=== PATIENT | female | born 1965 ===

== ENCOUNTER → 2020-02-27 13:49 | Outpatient (REF) | payer OTHER, SELFPAY ==
--- NOTE | 2020-02-27 13:57 | CA_ITS ---
Transthoracic Echocardiogram Patient (Last, First, Middle): Rere Spaulding J Gender: Female Date of : 1965 Age: 54 Procedure Date: 02/27/2020 Procedure Type: Transthoracic Echocardiogram Location: OP Height: 165.1 cm Weight: 72.58 kg BSA: 1.80 m2 Heart Rate: bpm BP: 112 / 80 mmHg Physical Education Professor: Referring MD: Herbert Boyle MD Symptoms: Non rheumatic aortic valve stenosis. Study Quality: Fair ECG Rhythm: Sinus Conclusions: - The left ventricular systolic function is normal. The visually estimated ejection fraction is between 60-65%. - There is severe aortic valve stenosis. - There is mild mitral valve regurgitation. - There is mild tricuspid valve regurgitation. - Mild pulmonary hypertension is present. - There is mild dilatation of the ascending aorta measuring 4.30 cm. Findings Left Ventricle Normal left ventricular cavity size. There is mildly increased left ventricular wall thickness. The left ventricular systolic function is normal. The visually estimated ejection fraction is between 60-65%. There is no evidence of regional wall motion abnormalities. Diastolic function is normal for age. Right Ventricle Normal right ventricular cavity size and systolic function. Atria The left atrium is normal in size. The right atrium is normal in size. Aortic Valve There is moderate calcification of the aortic valve. There is severe aortic valve stenosis. The peak aortic velocity is 4.33 m/s with a calculated peak gradient of 75 mmHg. The mean gradient is 44 mmHg. The aortic valve area is 0.84 cm2. There is mild aortic valve regurgitation. Suspect bicuspid morphology. Mitral Valve There is mild mitral annular calcification. There is mild mitral valve regurgitation. There is no mitral valve stenosis. Pulmonic Valve The pulmonic valve was not well visualized. Tricuspid Valve Normal tricuspid valve structure. There is mild tricuspid valve regurgitation. Mild pulmonary hypertension is present. Great Vessels There is mild dilatation of the ascending aorta measuring 4.30 cm. Venous The inferior vena cava is normal in size and collapses greater than 50% with inspiration. Pericardium/Pleural There is no evidence of pericardial effusion. Prior Study Comparison Changes noted compared to prior study dated: 08/13/2012. Progression of aortic valve stenosis. Per report at that time, bicuspid aortic valve with mild aortic stenosis and [id number] aortic regurgitation. Measurements 2D Linear Measurements RVIDd: 3.11 RVIDd Index: 1.73 IVSd: 1.10 0.6-0.9/0.6-1.0 cm LVIDd: 4.75 3.9-5.3/4.2-5.9 cm LVIDd Index: 2.64 2.4-3.2/2.2-3.1 cm/m2 LVIDs: 3.14 2.0-3.6 cm LVPWd: 1.08 0.7-1.1 cm Ao Root: 3.60 2.1-3.5 cm LA Diam: 3.40 2.7-3.8/3.0-4.0 cm LAIDs Index: 1.89 1.5-2.3 cm/m2 LV Mass: 234.67 67-162/88-224 g LV Mass Index: 130.37 43-95/49-115 g/m2 LVOT Diam: 2.20 3.0+(-)1.3 cm 2D Systolic Function EF 4C: 70.50 >55% EF 2C: 60.10 >55% EF BiP: 66.60 >55% Mitral Valve MV Pk E: 0.73 MV PK A: 0.62 MV Decel Time: 169.00 E/A: 1.20 E'Lateral: 11.60 E'Medial: 6.19 E/E' Med: 11.80 E/E' Lat: 6.30 Aortic Valve AoV Pk Marcos: 4.33 AoV Mn Marcos: 3.12 AoV VTI: 0.98 AoV Pk Grad: 75.00 Aov Mn Grad: 44.00 [place] Cont.VTI: 0.84 AI Pk Marcos: 4.78 AI Cache: 1.85 LVOT LVOT Pk Marcos: 0.94 LVOT Mn Marcos: 0.73 LVOT VTI: 0.22 LVOT Pk Grad: 3.00 LVOT Mn Grad: 2.00 LVOT Diam: 2.20 LVOT Area: 3.80 Diastolic Function MV Pk E: 0.73 MV Pk A: 0.62 E/A: 1.20 E'Medial: 6.19 E/E' Med: 11.80 E' Laterial: 11.60 E/E' Lat: 6.30 Tricuspid Valve TR Pk Marcos: 3.01 TR Pk Grad: 36.00 RA Press: 3.00 RVSP: 39.00 Great Vessels Aorta Ao Root-2D: 3.60 2.0-3.7 cm Ao Asc: 4.30 2.1-3.4 cm Ao Arch: 3.20 Updated in Other Vendor System with Status of Final Henry Gomez MD electronically signed on 02/28/2020 11:21:20 AM with status of Final
== END ==
LOC: HO.CARD 13:49
PROVIDERS: PCP Family Medicine; Visit Provider Family Medicine
DX: I35.0 Nonrheumatic aortic (valve) stenosis (principal); Q23.1 Congenital insufficiency of aortic valve
CPT/HCPCS: 93306

== ENCOUNTER → 2020-03-04 09:07 | Outpatient (BNVA) | payer OTHER, SELFPAY | PROVIDERS: PCP Family Medicine; Referring Provider Family Medicine; Visit Provider Internal Medicine | DX: Q23.1 Congenital insufficiency of aortic valve (principal) | CPT/HCPCS: 93005 ==

== ENCOUNTER 2020-03-04 12:04 | Outpatient (REF) | payer OTHER, SELFPAY ==
[2020-03-04 13:58] LABS: Hematocrit 44.3 % (37-47); Hemoglobin 14.4 g/dl (12.0-16.0); Mean Corpuscular HGB Conc 32.5 g/dl (31.0-35.0); Mean Corpuscular Hemoglobin 31.2 pg (27.0-33.0); Mean Corpuscular Volume 95.9 fL (80-98); Mean Platelet Volume 10.1 fL (9.4-12.3); Platelet Count 238 X10*3/uL (160-400); Red Blood Count 4.62 X10*6/uL (4.20-5.50); Red Cell Distribution Width 13.1 % (11.0-16.0); White Blood Count 7.9 X10*3/uL (4.8-10.8)
[2020-03-04 14:04] LABS: INTERNATIONAL NORM RATIO 0.9 (0.9-1.1); Prothrombin Time 10.8 SEC (10.8-13.0)
[2020-03-04 14:28] LABS: Anion Gap 14 (12-20); Blood Urea Nitrogen 18 mg/dL (9-16); Carbon Dioxide 26 mmol/L (22-29); Chloride 105 mmol/L (96-108); Estimated Glomerular Filt Rate > 60; Glucose Random 92 mg/dL (60-115); Potassium 4.6 mmol/l (3.3-5.1); Sodium 140 mmol/L (135-145)
[2020-03-04 14:45] LABS: Calcium 11.3 mg/dL (8.4-10.2)
== END 2020-03-04 12:05 | disposition home or self-care (01) ==
LOC: HO.HMGCLDS 12:04
PROVIDERS: PCP Family Medicine; Visit Provider Internal Medicine
DX: Q23.1 Congenital insufficiency of aortic valve (principal)
CPT/HCPCS: 36415; 80048; 85027; 85610

== ENCOUNTER → 2020-03-23 14:57 | Outpatient (BNVA) | payer OTHER, SELFPAY | PROVIDERS: PCP Family Medicine; Referring Provider Family Medicine; Visit Provider Internal Medicine | DX: Z76.89 Persons encountering health services in other specified circumstances (principal) ==

== ENCOUNTER → 2020-05-03 15:03 | Outpatient (BNVA) | payer OTHER, SELFPAY | PROVIDERS: PCP Family Medicine; Visit Provider Internal Medicine | DX: Z76.89 Persons encountering health services in other specified circumstances (principal) ==

== ENCOUNTER 2020-07-15 12:17 | Outpatient (REF) | payer OTHER, SELFPAY ==
[2020-07-15 14:02] LABS: MANUAL DIFF FLAG NO
[2020-07-15 14:05] LABS: Basophils Percent Auto 0.3 % (0-2); Eosinophils Absolute Auto 0.1 X10*3/uL (0.0-0.4); Eosinophils Percent Auto 0.8 % (0-4); Hemoglobin 10.5 g/dl (12.0-16.0); Imm Gran Abs Auto 0.03 X10*3/uL (0.00-0.03); Imm Gran Pct Auto 0.4 % (0.0-0.4); Lymphocytes Absolute Auto 1.5 X10*3/uL (1.2-4.9); Lymphocytes Percent Auto 19.1 % (20-40); Mean Corpuscular HGB Conc 30.9 g/dl (31.0-35.0); Mean Corpuscular Hemoglobin 29.1 pg (27.0-33.0); Mean Corpuscular Volume 94.2 fL (80-98); Mean Platelet Volume 9.2 fL (9.4-12.3); Monocytes Absolute Auto 0.4 X10*3/uL (0.1-1.2); Monocytes Percent Auto 4.9 % (2-11); Neutrophils Absolute Auto 5.7 X10*3/uL (2.0-8.3); Neutrophils Percent Auto 74.5 % (45-73); Platelet Count 496 X10*3/uL (160-400); Red Blood Count 3.61 X10*6/uL (4.20-5.50); Red Cell Distribution Width 13.8 % (11.0-16.0); White Blood Count 7.7 X10*3/uL (4.8-10.8)
[2020-07-15 14:29] LABS: Calcium 10.5 mg/dL (8.4-10.2)
== END 2020-07-15 12:18 | disposition home or self-care (01) ==
LOC: HO.HMGCLDS 12:17
PROVIDERS: PCP Family Medicine; Visit Provider Family Medicine
DX: D50.0 Iron deficiency anemia secondary to blood loss (chronic) (principal); E83.52 Hypercalcemia
CPT/HCPCS: 36415; 82310; 85025

== ENCOUNTER → 2020-07-29 15:06 | Outpatient (BNVA) | payer OTHER, SELFPAY | PROVIDERS: PCP Family Medicine; Visit Provider Internal Medicine | DX: Q23.1 Congenital insufficiency of aortic valve (principal); I10 Essential (primary) hypertension; Z95.2 Presence of prosthetic heart valve; Z98.890 Other specified postprocedural states; Z86.79 Personal history of other diseases of the circulatory system | CPT/HCPCS: 93005 ==

== ENCOUNTER 2020-08-05 08:30 | Outpatient (REF) | payer OTHER, SELFPAY ==
[2020-08-05 11:12] LABS: MANUAL DIFF FLAG NO
[2020-08-05 11:37] LABS: Basophils Percent Auto 0.2 % (0-2); Eosinophils Absolute Auto 0.1 X10*3/uL (0.0-0.4); Eosinophils Percent Auto 1.5 % (0-4); Hematocrit 37.8 % (37-47); Hemoglobin 11.8 g/dl (12.0-16.0); Mean Corpuscular HGB Conc 31.2 g/dl (31.0-35.0); Mean Corpuscular Hemoglobin 29.4 pg (27.0-33.0); Mean Corpuscular Volume 94.3 fL (80-98); Mean Platelet Volume 10.5 fL (9.4-12.3); Monocytes Absolute Auto 0.3 X10*3/uL (0.1-1.2); Monocytes Percent Auto 6.1 % (2-11); Neutrophils Percent Auto 74.2 % (45-73); Platelet Count 245 X10*3/uL (160-400); Red Blood Count 4.01 X10*6/uL (4.20-5.50); Red Cell Distribution Width 15.5 % (11.0-16.0); White Blood Count 5.4 X10*3/uL (4.8-10.8)
[2020-08-05 12:03] LABS: Iron 47 mcg/dL (30-160); Percent Iron Saturation 14 % (15-50); Total Iron Binding Capacity 332 mcg/dL (228-428); Unsaturated Iron Binding 285 ug/dL
== END 2020-08-05 08:31 | disposition home or self-care (01) ==
LOC: HO.HMGCLDS 08:30
PROVIDERS: PCP Family Medicine; Visit Provider Family Medicine
DX: D50.9 Iron deficiency anemia, unspecified (principal)
CPT/HCPCS: 36415; 83540; 85025

== ENCOUNTER → 2020-09-20 09:36 | Outpatient (REF) | payer OTHER, SELFPAY ==
--- NOTE | 2020-09-20 09:38 | CA_ITS ---
Transthoracic Echocardiogram Patient (Last, First, Middle): Rere Spaulding J Gender: Female Date of : 1965 Age: 55 Procedure Date: 09/20/2020 Procedure Type: Transthoracic Echocardiogram Location: OP Height: 165.1 cm Weight: 72.58 kg BSA: 1.80 m2 Heart Rate: bpm BP: 110 / 76 mmHg Community Pharmacist: DEO Rawls MD: Henry Gomez MD Demolitionist: Lazaro Caba MD Symptoms: Z95.2 - Presence of prosthetic heart valve Study Quality: Good ECG Rhythm: Sinus Conclusions: - 1. Normal LV systolic function with impaired relaxation filling pattern 2. Normally functioning mechanical aortic prosthetic valve with mean gradient of 11 mm of mercury 3. Measured ascending aorta within normal limits 4. Normal RV systolic pressure 5. No gross pericardial effusion Findings Left Ventricle Normal left ventricular size, thickness, and systolic function. The visually estimated ejection fraction is between 55-60%. There is paradoxical septal motion consistent with post-operative status. Spectral Doppler is indicative of an impaired relaxation filling pattern. E/E prime ratio is between 8 and 15 consistent with indeterminate filling pressures. Right Ventricle Normal right ventricular cavity size and systolic function. Atria Both atria are normal in size. There is no evidence of interatrial shunt. Aortic Valve A mechanical prosthetic aortic valve is present. The prosthetic aortic valve appears to be functioning normally. The mean gradient is 11 mmHg. The mechanical prosthetic valve is well seated with no abnormal rocking motion. Mean gradient is within acceptable limits Mitral Valve Normal mitral valve structure and function. There is trace mitral valve regurgitation. There is no mitral valve stenosis. Pulmonic Valve The pulmonic valve was not well visualized. Tricuspid Valve Normal tricuspid valve structure. There is trace tricuspid valve regurgitation. The right ventricular systolic pressure is normal. The right ventricular systolic pressure is 22 mmHg. Normal right atrial pressure. There is no evidence of pulmonary hypertension. Great Vessels All visible segments of the aorta are normal in size. The pulmonary artery was not well visualized. Venous The inferior vena cava is normal in size and collapses greater than 50% with inspiration. Pericardium/Pleural There is no evidence of pericardial effusion. Prior Study Comparison Changes noted compared to prior study dated: 02/27/2020. Ascending aorta measured on this study to be within normal limits, could be underestimated due to off axis views. Consider other forms of imaging. RV systolic pressure is within normal limits. Mechanical aortic valve is present in place of [place] severe aortic stenosis Measurements 2D Linear Measurements IVSd: 0.98 0.6-0.9/0.6-1.0 cm LVIDd: 4.71 3.9-5.3/4.2-5.9 cm LVIDd Index: 2.62 2.4-3.2/2.2-3.1 cm/m2 LVIDs: 3.47 2.0-3.6 cm LVPWd: 0.97 0.7-1.1 cm LA Diam: 3.30 2.7-3.8/3.0-4.0 cm LAIDs Index: 1.83 1.5-2.3 cm/m2 LV Mass: 198.83 67-162/88-224 g LV Mass Index: 110.46 43-95/49-115 g/m2 LVOT Diam: 2.20 3.0+(-)1.3 cm 2D Systolic Function EF 4C: 57.90 >55% EF 2C: 58.90 >55% EF BiP: 58.70 >55% Mitral Valve MV Pk E: 0.77 MV PK A: 0.85 MV Decel Time: 224.00 E/A: 0.90 E'Lateral: 11.60 E'Medial: 8.92 E/E' Med: 8.60 E/E' Lat: 6.60 PHT: 65.00 MVA PHT: 3.38 Decel [place]: 3.42 Aortic Valve AoV Pk Marcos: 2.26 AoV Mn Marcos: 1.59 AoV VTI: 0.41 AoV Pk Grad: 20.00 Aov Mn Grad: 11.00 [place] Cont.VTI: 1.83 LVOT LVOT Pk Marcos: 0.91 LVOT Mn Marcos: 0.69 LVOT VTI: 0.20 LVOT Pk Grad: 3.00 LVOT Mn Grad: 2.00 LVOT Diam: 2.20 LVOT Area: 3.80 Diastolic Function MV Pk E: 0.77 MV Pk A: 0.85 E/A: 0.90 E'Medial: 8.92 E/E' Med: 8.60 E' Laterial: 11.60 E/E' Lat: 6.60 Tricuspid Valve TR Pk Marcos: 2.18 TR Pk Grad: 19.00 RA Press: 3.00 RVSP: 22.00 Great Vessels Aorta Ao Asc: 3.10 2.1-3.4 cm Ao Arch: 2.90 Updated in Other Vendor System with Status of Final Lazaro Caba MD electronically signed on 09/20/2020 12:23:16 PM with status of Final
== END ==
LOC: HO.CARD 09:36
PROVIDERS: PCP Family Medicine; Visit Provider Internal Medicine
DX: Z95.2 Presence of prosthetic heart valve (principal)
CPT/HCPCS: 93306

== ENCOUNTER → 2020-09-30 14:16 | Outpatient (BNVA) | payer OTHER, SELFPAY | PROVIDERS: PCP Family Medicine; Referring Provider Family Medicine; Visit Provider Internal Medicine ==

== ENCOUNTER 2020-10-08 07:36 | Outpatient (REF) | payer OTHER, SELFPAY ==
[2020-10-08 12:08] LABS: MANUAL DIFF FLAG NO
[2020-10-08 12:21] LABS: Basophils Percent Auto 0.2 % (0-2); Eosinophils Absolute Auto 0.1 X10*3/uL (0.0-0.4); Eosinophils Percent Auto 2.1 % (0-4); Hematocrit 42.4 % (37-47); Hemoglobin 13.2 g/dl (12.0-16.0); Lymphocytes Absolute Auto 1.4 X10*3/uL (1.2-4.9); Lymphocytes Percent Auto 28.8 % (20-40); Mean Corpuscular HGB Conc 31.1 g/dl (31.0-35.0); Mean Corpuscular Hemoglobin 28.3 pg (27.0-33.0); Mean Corpuscular Volume 90.8 fL (80-98); Mean Platelet Volume 10.1 fL (9.4-12.3); Monocytes Absolute Auto 0.4 X10*3/uL (0.1-1.2); Monocytes Percent Auto 7.6 % (2-11); Neutrophils Absolute Auto 2.9 X10*3/uL (2.0-8.3); Neutrophils Percent Auto 61.3 % (45-73); Platelet Count 216 X10*3/uL (160-400); Red Blood Count 4.67 X10*6/uL (4.20-5.50); Red Cell Distribution Width 15.3 % (11.0-16.0); White Blood Count 4.8 X10*3/uL (4.8-10.8)
[2020-10-08 13:47] LABS: Alanine Aminotransferase 13 U/L (0-31); Albumin Level 4.2 g/dL (3.5-5.0); Alkaline Phosphatase 99 U/L (39-117); Anion Gap 12 (12-20); Aspartate Amino Transferase 16 U/L (5-31); Bilirubin Total 0.4 mg/dL (0.0-1.0); Blood Urea Nitrogen 21 mg/dL (9-16); Carbon Dioxide 26 mmol/L (22-29); Chloride 108 mmol/L (96-108); Estimated Glomerular Filt Rate > 60; Glucose Random 66 mg/dL (60-115); Potassium 4.2 mmol/L (3.3-5.1); Sodium 142 mmol/L (135-145); Total Protein 6.9 g/dL (6.5-8.0)
[2020-10-08 13:48] LABS: Calcium 10.8 mg/dL (8.4-10.2)
== END 2020-10-08 07:37 | disposition home or self-care (01) ==
LOC: HO.HMGCLDS 07:36
PROVIDERS: PCP Family Medicine; Visit Provider Family Medicine
DX: R42 Dizziness and giddiness (principal); D50.9 Iron deficiency anemia, unspecified; E83.52 Hypercalcemia
CPT/HCPCS: 36415; 80053; 85025

== ENCOUNTER → 2021-02-23 13:52 | Outpatient (BNVA) | payer OTHER, SELFPAY | PROVIDERS: PCP Family Medicine; Visit Provider Internal Medicine | DX: I10 Essential (primary) hypertension (principal); R00.2 Palpitations; Q23.1 Congenital insufficiency of aortic valve; Z95.2 Presence of prosthetic heart valve; Z98.890 Other specified postprocedural states; Z86.79 Personal history of other diseases of the circulatory system | CPT/HCPCS: 93005 ==

== ENCOUNTER 2021-05-04 10:53 | Outpatient (REF) | payer OTHER, SELFPAY ==
[2021-05-04 15:31] LABS: Phosphorus 2.3 mg/dL (2.7-4.5)
[2021-05-05 13:07] LABS: PTHI 116 pg/mL (14-64)
[2021-05-05 14:27] LABS: Calcium, Ionized 5.3 mg/dL (4.8-5.6)
== END 2021-05-04 10:54 | disposition home or self-care (01) ==
LOC: HO.HMGCLDS 10:53
PROVIDERS: PCP Family Medicine; Visit Provider Family Medicine
DX: E83.52 Hypercalcemia (principal)
CPT/HCPCS: 36415; 82330; 83970; 84100

== ENCOUNTER → 2021-08-03 07:30 | Outpatient (REF) | payer OTHER, SELFPAY ==
--- NOTE | 2021-08-03 07:47 | CA_ITS ---
Transthoracic Echocardiogram Patient (Last, First, Middle): Rere Spaulding J Gender: Female Date of : 1965 Age: 56 Procedure Date: 08/03/2021 Procedure Type: Transthoracic Echocardiogram Location: OP Height: 165.1 cm Weight: 72.58 kg BSA: 1.80 m2 Heart Rate: bpm BP: 137 / 77 mmHg Baker Chef: YR/TO Referring MD: Henry Gomez MD Symptoms: Z95.2 - Presence of prosthetic heart valve Study Quality: Good ECG Rhythm: Sinus Conclusions: - The left ventricular systolic function is normal. The visually estimated ejection fraction is between 55-60%. - A mechanical prosthetic aortic valve is present. The prosthetic aortic valve appears to be functioning normally. Findings Left Ventricle Normal left ventricular cavity size. There is mildly increased left ventricular wall thickness. The left ventricular systolic function is normal. The visually estimated ejection fraction is between 55-60%. There is no evidence of regional wall motion abnormalities. Diastolic function is normal for age. Right Ventricle Normal right ventricular cavity size and systolic function. Atria Both atria are normal in size. Aortic Valve A mechanical prosthetic aortic valve is present. The prosthetic aortic valve appears to be functioning normally. The mean gradient is 14 mmHg. The aortic valve area is 1.71 cm2. Acceleration time 74 milliseconds. Trace para valvular regurgitation. Mitral Valve The mitral valve appears normal. There is trace mitral valve regurgitation. There is no mitral valve stenosis. Pulmonic Valve The pulmonic valve was not well visualized. Tricuspid Valve Normal tricuspid valve structure. There is mild tricuspid valve regurgitation. The pulmonary artery systolic pressure is normal. Great Vessels The asc aorta is normal in size. Venous The inferior vena cava is normal in size and collapses greater than 50% with inspiration. Pericardium/Pleural There is no evidence of pericardial effusion. Prior Study Comparison No significant change compared to prior study dated: 09/20/2020. Measurements 2D Linear Measurements IVSd: 1.10 0.6-0.9/0.6-1.0 cm LVIDd: 4.18 3.9-5.3/4.2-5.9 cm LVIDd Index: 2.32 2.4-3.2/2.2-3.1 cm/m2 LVIDs: 2.55 2.0-3.6 cm LVPWd: 1.04 0.7-1.1 cm LA Diam: 3.70 2.7-3.8/3.0-4.0 cm LAIDs Index: 2.06 1.5-2.3 cm/m2 LV Mass: 186.58 67-162/88-224 g LV Mass Index: 103.65 43-95/49-115 g/m2 LVOT Diam: 2.20 3.0+(-)1.3 cm 2D Systolic Function EF 4C: 55.30 >55% EF 2C: 53.70 >55% EF BiP: 54.10 >55% Mitral Valve MV Pk E: 0.74 MV PK A: 0.78 MV Decel Time: 226.00 E/A: 0.90 E'Lateral: 11.10 E'Medial: 5.77 E/E' Med: 12.80 E/E' Lat: 6.60 PHT: 66.00 MVA PHT: 3.33 Decel [place]: 3.26 Aortic Valve AoV Pk Marcos: 2.58 AoV Mn Marcos: 1.80 AoV VTI: 0.52 AoV Pk Grad: 27.00 Aov Mn Grad: 14.00 [place] Cont.VTI: 1.71 LVOT LVOT Pk Marcos: 1.04 LVOT Mn Marcos: 0.74 LVOT VTI: 0.24 LVOT Pk Grad: 4.00 LVOT Mn Grad: 2.00 LVOT Diam: 2.20 LVOT Area: 3.80 Diastolic Function MV Pk E: 0.74 MV Pk A: 0.78 E/A: 0.90 E'Medial: 5.77 E/E' Med: 12.80 E' Laterial: 11.10 E/E' Lat: 6.60 Right Ventricle TAPSE (mm): 17.30 TVS' Marcos: 7.40 Tricuspid Valve TR Pk Marcos: 2.21 TR Pk Grad: 20.00 RA Press: 3.00 RVSP: 23.00 Great Vessels Aorta Sinus of Valsalva: 3.37 2.0-3.5 cm Ao Asc: 3.10 2.1-3.4 cm Ao Arch: 3.10 Updated in Other Vendor System with Status of Final Henry Gomez MD electronically signed on 08/05/2021 2:43:55 PM with status of Final
== END ==
LOC: HO.CARD 07:30
PROVIDERS: PCP Family Medicine; Visit Provider Internal Medicine
DX: Z95.2 Presence of prosthetic heart valve (principal)
CPT/HCPCS: 93306

== ENCOUNTER 2022-08-25 09:05 | Outpatient (REF) | payer OTHER, SELFPAY ==
[2022-08-25 11:33] LABS: MANUAL DIFF FLAG NO
[2022-08-25 11:56] LABS: Eosinophils Absolute Auto 0.1 X10*3/uL (0.0-0.4); Eosinophils Percent Auto 2.3 % (0-4); Hematocrit 41.9 % (37.0-47.0); Hemoglobin 13.4 g/dl (12.0-16.0); Imm Gran Abs Auto 0.01 X10*3/uL (0.00-0.03); Imm Gran Pct Auto 0.2 % (0.0-0.4); Lymphocytes Percent Auto 23.3 % (20-40); Mean Corpuscular Hemoglobin 29.5 pg (27.0-33.0); Mean Corpuscular Volume 92.3 fL (80.0-98.0); Mean Platelet Volume 10.5 fL (9.4-12.3); Monocytes Absolute Auto 0.3 X10*3/uL (0.1-1.2); Monocytes Percent Auto 5.7 % (2-11); Neutrophils Percent Auto 68.5 % (45-73); Platelet Count 205 X10*3/uL (160-400); Red Blood Count 4.54 X10*6/uL (4.20-5.50); Red Cell Distribution Width 14.9 % (11.0-16.0); White Blood Count 4.4 X10*3/uL (4.8-10.8)
[2022-08-25 12:36] LABS: Anion Gap 10 (12-20); Blood Urea Nitrogen 15 mg/dL (9-16); Calcium 10.4 mg/dL (8.4-10.2); Carbon Dioxide 26 mmol/L (22-29); Chloride 110 mmol/L (96-108); Estimated Glomerular Filt Rate > 60; Sodium 142 mmol/L (135-145)
[2022-08-28 15:29] LABS: Calcium (PTHI) 10.5 mg/dL (8.6-10.4); PTHI 91 pg/mL (16-77)
== END 2022-08-25 09:06 | disposition home or self-care (01) ==
LOC: HO.HMGCLDS 09:05
PROVIDERS: PCP Family Medicine; Visit Provider Family Medicine
DX: I10 Essential (primary) hypertension (principal); K21.9 Gastro-esophageal reflux disease without esophagitis; E83.52 Hypercalcemia
CPT/HCPCS: 36415; 80051; 82310; 82565; 83970; 84520; 85025

== ENCOUNTER → 2022-10-12 07:54 | Outpatient (REF) | payer OTHER, SELFPAY ==
--- NOTE | 2022-10-12 07:57 | CA_ITS ---
Transthoracic Echocardiogram Patient (Last, First, Middle): Rere Spaulding J Gender: Female Date of : 1965 Age: 57 Procedure Date: 10/12/2022 Procedure Type: Transthoracic Echocardiogram Location: OP Height: 165.1 cm Weight: 73.94 kg BSA: 1.81 m2 Heart Rate: bpm BP: 130 / 85 mmHg Agriculture Science Teacher: CHELLE Rawls MD: Henry Gomez MD Carpenter'S Assistant: Lazaro Caba MD Symptoms: Z95.2 - Presence of prosthetic heart valve Study Quality: Adequate ECG Rhythm: Sinus Conclusions: - 1. Normal LV systolic function 2. Mildly dilated left atrium 3. Normally functioning mechanical aortic prosthetic valve with mean gradient of 14 mmHg 4. Normal RV systolic pressure 5. No pericardial effusion Findings Left Ventricle Normal left ventricular size, thickness, and systolic function. The visually estimated ejection fraction is between 55-60%. Spectral Doppler is indicative of a normal filling pattern. Right Ventricle Normal right ventricular cavity size and systolic function. Atria The left atrium is mildly dilated. There is lipomatous hypertrophy of the interatrial septum. Interatrial shunt cannot be excluded. The right atrium is normal in size. Aortic Valve A mechanical prosthetic aortic valve is present. The prosthetic aortic valve appears to be functioning normally. The mean gradient is 14 mmHg. There is trace (trivial) aortic valve regurgitation. Mitral Valve There is mild anterior and posterior mitral leaflet thickening. There is mild mitral valve regurgitation. There is no mitral valve stenosis. Pulmonic Valve The pulmonic valve was not well visualized. Tricuspid Valve Normal tricuspid valve structure. There is trace tricuspid valve regurgitation. The right ventricular systolic pressure is normal. The right ventricular systolic pressure is 30 mmHg. Normal right atrial pressure. There is no evidence of pulmonary hypertension. Great Vessels All visible segments of the aorta are normal in size. The pulmonary artery was not well visualized. Venous The inferior vena cava is normal in size and collapses greater than 50% with inspiration. Pericardium/Pleural There is no evidence of pericardial effusion. Prior Study Comparison No significant change compared to prior study dated: 08/03/2021. Measurements 2D Linear Measurements IVSd: 1.10 0.6-0.9/0.6-1.0 cm LVIDd: 4.01 3.9-5.3/4.2-5.9 cm LVIDd Index: 2.22 2.4-3.2/2.2-3.1 cm/m2 LVIDs: 2.12 2.0-3.6 cm LVPWd: 1.07 0.7-1.1 cm LA Diam: 2.80 2.7-3.8/3.0-4.0 cm LAIDs Index: 1.55 1.5-2.3 cm/m2 LV Mass: 178.41 67-162/88-224 g LV Mass Index: 98.57 43-95/49-115 g/m2 LVOT Diam: 2.20 3.0+(-)1.3 cm 2D Systolic Function EF 4C: 64.10 >55% EF 2C: 52.80 >55% Mitral Valve MV Pk E: 0.97 MV PK A: 0.67 MV Decel Time: 186.00 E/A: 1.40 E'Lateral: 8.06 E'Medial: 5.78 E/E' Med: 16.70 E/E' Lat: 12.00 PHT: 54.00 MVA PHT: 4.07 Decel [place]: 5.22 Aortic Valve AoV Pk Marcos: 2.53 AoV Mn Marcos: 1.73 AoV VTI: 0.57 AoV Pk Grad: 26.00 Aov Mn Grad: 14.00 [place] Cont.VTI: 2.20 LVOT LVOT Pk Marcos: 1.39 LVOT Mn Marcos: 0.96 LVOT VTI: 0.33 LVOT Pk Grad: 8.00 LVOT Mn Grad: 4.00 LVOT Diam: 2.20 LVOT Area: 3.80 Diastolic Function MV Pk E: 0.97 MV Pk A: 0.67 E/A: 1.40 E'Medial: 5.78 E/E' Med: 16.70 E' Laterial: 8.06 E/E' Lat: 12.00 Right Ventricle TAPSE (mm): 18.20 TVS' Marcos: 9.02 Tricuspid Valve TR Pk Marcos: 2.58 TR Pk Grad: 27.00 RA Press: 3.00 RVSP: 30.00 Great Vessels Aorta Sinus of Valsalva: 3.40 2.0-3.5 cm Ao Asc: 3.10 2.1-3.4 cm Pulmonary Valve PV Pk Marcos: 0.86 Peak PV Grad: 3.00 Updated in Other Vendor System with Status of Final Lazaro Caba MD electronically signed on 10/12/2022 2:35:23 PM with status of Final
== END ==
LOC: HO.CARD 07:54
PROVIDERS: PCP Family Medicine; Visit Provider Internal Medicine
DX: Z95.2 Presence of prosthetic heart valve (principal)
CPT/HCPCS: 93306

== ENCOUNTER 2023-04-17 10:02 | Outpatient (AMB) | payer OTHER, SELFPAY ==
--- NOTE | 2023-04-17 10:06 | MHC.OFFVIS ---
Intake Vital Signs 04/17/23 10:07 Height 5 ft 5 in Weight 173 lb 11.588 oz BMI 28.9 BP 132/80 Blood Pressure Location Lt brachial Position Sitting Pulse 62 Intake Visit Reasons: 6 month follow up Intake Note: 6 month follow up w/ EKG Marine Oiler Required: No Accompanied by: Self / Same As Patient Allergies No Known Allergies Allergy (Verified 04/17/23 10:09) Medication List - Last Reconciled 04/17/23 by Henry Gomez MD aspirin 81 mg PO DAILY cholecalciferol (vitamin D3) 25 mcg PO DAILY metoprolol tartrate 25 mg PO BID multivitamin 1 tab PO DAILY warfarin 7.5 mg PO DAILY HPI HPI Comments History of Present Illness Details Rere returns for follow-up. She underwent mechanical aortic valve replacement as well as aortic aneurysm repair. History of bicuspid valve. Overall, she is doing good. No clear cardiac symptoms. [facility] Medical History (Updated 02/23/21 @ 14:30 by Henry Gomez MD) Essential hypertension Nonrheumatic aortic (valve) stenosis Bicuspid aortic valve Surgical History History of aortic valve replacement (~06/30/20) History of aortic aneurysm repair (~06/30/20) History of D&C History of left breast biopsy Family History Father Cardiovascular disease Stroke History of coronary artery bypass graft Mother Cardiovascular disease Heart valve replaced Social History Patient Tobacco Use Status: Never used Tobacco Review of Systems Const Denies weakness ENT Denies dizziness Card Denies chest pain, Denies chest pain with activity, Denies syncope, Denies rapid heart rate, Denies pedal edema, Denies edema, Denies leg edema, Denies lightheadedness, Denies dyspnea, Denies dyspnea on exertion and Denies orthopnea Resp Denies cough, Denies dyspnea and Denies dyspnea on exertion GI Denies hematochezia and Denies change in stool character Musc Denies abnormal gait, Denies muscle cramps, Denies muscle weakness, Denies numbness, Denies radiating pain into limb and Denies tingling Neuro Denies abnormal gait, Denies dizziness, Denies syncope, Denies numbness, Denies tingling and Denies weakness Physical Exam Vital Signs: Last Vital Signs Pulse 62 04/17/23 10:07 BP 132/80 04/17/23 10:07 BMI result Body Mass Index 28.9 Const General: cooperative, comfortable and no acute distress Orientation/consciousness: patient oriented x3 HEENT Other: Unremarkable Neck Neck: Yes normal visual inspection Chest Chest palpation & inspection: normal inspection of the chest Resp Auscultation: clear to auscultation bilaterally and no crackles Cardio Jugular venous distension: no JVD Palpation: normal PMI Heart sounds: no gallops, no murmurs, no rubs and Other heart sounds present (Normal prosthetic heart sounds) GI Palpation (GI): Soft to palpation Back/Spine/Pelvis Other: unremarkable Skin General skin exam: no rashes or lesions noted Neuro General: patient oriented x3 Extrem General: Yes no clubbing, cyanosis or edema Psych Mental Status: mental status grossly normal Office Procedures EKG Details: EKG shows sinus rhythm at 62/Min; no significant ST-T changes and otherwise unremarkable[place] [id number], Complete Assessment & Plan Assessment & Plan (1) Status post mechanical aortic valve replacement: Code(s): Z95.2 - Presence of prosthetic heart valve Plan: Continue Aspirin and Coumadin. Target INR 1.5-2. Infective endocarditis prophylaxis per protocol. Last echocardiogram with normal prosthetic valve function. (2) Status post ascending aortic aneurysm repair: Code(s): Z98.890 - Other specified postprocedural states; Z86.79 - Personal history of other diseases of the circulatory system Plan: Stable on [facility] CTs. (3) Essential hypertension: Code(s): I10 - Essential (primary) hypertension Plan: Stable. No changes. Plan Total time spent including review of data, counseling documentation-32 minutes. Coding Level of Care Code Est Pt Level 4 (78836) Diagnoses Status post mechanical aortic valve replacement Z95.2 Status post ascending aortic aneurysm repair Z98.890; Z86.79 Essential hypertension I10 CPT Codes EKG - CPT: 77682-[id number], Complete ([id number])
[2023-04-17 10:07] VITALS: BP 132/80; PULSE 62; BMI 28.9
== END 2023-04-17 10:25 | disposition home or self-care (01) ==
PROVIDERS: PCP Family Medicine; Visit Provider Internal Medicine
DX: Z95.2 Presence of prosthetic heart valve (principal); Z98.890 Other specified postprocedural states; Z86.79 Personal history of other diseases of the circulatory system; I10 Essential (primary) hypertension
CPT/HCPCS: 93010; 99214

== ENCOUNTER → 2023-04-17 10:02 | Outpatient (BNVA) | payer OTHER, SELFPAY | PROVIDERS: PCP Family Medicine; Visit Provider Internal Medicine | DX: Z95.2 Presence of prosthetic heart valve (principal); I10 Essential (primary) hypertension; Z86.79 Personal history of other diseases of the circulatory system; Z79.01 Long term (current) use of anticoagulants; Z79.82 Long term (current) use of aspirin; Z98.890 Other specified postprocedural states | CPT/HCPCS: 93005 ==

== ENCOUNTER 2023-04-20 08:24 | Outpatient (REF) | payer OTHER, SELFPAY ==
[2023-04-20 11:49] LABS: Anion Gap 14 (12-20); Blood Urea Nitrogen 15 mg/dL (9-16); Calcium 10.8 mg/dL (8.4-10.2); Carbon Dioxide 25 mmol/L (22-29); Chloride 110 mmol/L (96-108); Cholesterol 280 mg/dL (<200); Estimated Glomerular Filt Rate > 60; Glucose Fasting 93 mg/dL (60-99); HDL Cholesterol 64 mg/dL (>40); LDL Cholesterol Calculated 186 mg/dL (<100); Potassium 4.5 mmol/L (3.3-5.1); Sodium 144 mmol/L (135-145); Triglycerides 150 mg/dL (<150)
== END 2023-04-20 08:25 | disposition home or self-care (01) ==
LOC: HO.HMGCLDS 08:24
PROVIDERS: PCP Family Medicine; Visit Provider Family Medicine
DX: Z00.00 Encounter for general adult medical examination without abnormal findings (principal); E78.00 Pure hypercholesterolemia, unspecified
CPT/HCPCS: 36415; 80048; 80061

== ENCOUNTER 2023-09-11 08:49 | Outpatient (REF) | payer OTHER, SELFPAY ==
[2023-09-11 10:50] LABS: Alanine Aminotransferase 15 U/L (0-31); Albumin Level 4.1 g/dL (3.5-5.0); Alkaline Phosphatase 100 U/L (39-117); Anion Gap 11 (12-20); Aspartate Amino Transferase 17 U/L (5-31); Bilirubin Total 0.3 mg/dL (0.0-1.0); Blood Urea Nitrogen 10 mg/dL (9-16); Calcium 10.7 mg/dL (8.4-10.2); Carbon Dioxide 22 mmol/L (22-29); Chloride 112 mmol/L (96-108); Cholesterol 242 mg/dL (<200); Estimated Glomerular Filt Rate > 60; Glucose Fasting 93 mg/dL (60-99); HDL Cholesterol 54 mg/dL (>40); LDL Cholesterol Calculated 169 mg/dL (<100); Potassium 4.2 mmol/L (3.3-5.1); Sodium 141 mmol/L (135-145); Triglycerides 98 mg/dL (<150)
[2023-09-11 11:04] LABS: Basophils Percent Auto 0.3 % (0-2); Eosinophils Absolute Auto 0.1 X10*3/uL (0.0-0.4); Hematocrit 38.9 % (37.0-47.0); Hemoglobin 12.9 g/dl (12.0-16.0); Imm Gran Abs Auto 0.01 X10*3/uL (0.00-0.03); Imm Gran Pct Auto 0.3 % (0.0-0.4); Lymphocytes Absolute Auto 0.9 X10*3/uL (1.2-4.9); Lymphocytes Percent Auto 23.4 % (20-40); MANUAL DIFF FLAG SCAN; Mean Corpuscular HGB Conc 33.2 g/dl (31.0-35.0); Mean Corpuscular Hemoglobin 30.6 pg (27.0-33.0); Mean Corpuscular Volume 92.4 fL (80.0-98.0); Monocytes Absolute Auto 0.2 X10*3/uL (0.1-1.2); Monocytes Percent Auto 5.3 % (2-11); Neutrophils Absolute Auto 2.7 x10*3/uL (2.0-8.3); Neutrophils Percent Auto 68.7 % (45-73); PLT CLUMP 1; Red Blood Count 4.21 X10*6/uL (4.20-5.50); Red Cell Distribution Width 14.6 % (11.0-16.0); SCAN SMEAR FLAG 1
[2023-09-11 11:15] LABS: Mean Platelet Volume 10.5 fL (9.4-12.3); Platelet Count 179 X10*3/uL (160-400)
[2023-09-11 11:17] LABS: SLIDE REVIEW VERIFIED; White Blood Count 3.9 X10*3/uL (4.8-10.8)
== END 2023-09-11 08:50 | disposition home or self-care (01) ==
LOC: HO.HMGCLDS 08:49
PROVIDERS: PCP Family Medicine; Visit Provider Family Medicine
DX: E83.52 Hypercalcemia (principal); E78.00 Pure hypercholesterolemia, unspecified; R73.9 Hyperglycemia, unspecified; R53.83 Other fatigue
CPT/HCPCS: 36415; 80053; 80061; 85025

== ENCOUNTER 2023-12-18 10:52 | Outpatient (REF) | payer OTHER, SELFPAY ==
[2023-12-18 13:41] LABS: Calcium 10.8 mg/dL (8.4-10.2)
[2023-12-18 14:41] LABS: Parathyroid Hormone Intact 108.5 pg/mL (8.7-77.1)
== END 2023-12-18 10:53 | disposition home or self-care (01) ==
LOC: HO.HMGCLDS 10:52
PROVIDERS: PCP Family Medicine; Visit Provider Family Medicine
DX: E87.5 Hyperkalemia (principal)
CPT/HCPCS: 36415; 82310; 83970

== ENCOUNTER 2024-04-17 14:26 | Outpatient (AMB) | payer OTHER, SELFPAY ==
--- OUTSIDE RECORDS SUMMARY | 2024-04-17 14:29 | XMS_ITS | Continuity of Care Document ---
Author Organization [facility] Address [address] [place] [address] Phone [phone] Social History Type Date Description Comments Sex Unknown Medications Active Medications SIG Qnty Indications Ordering Provider Date Bupropion Hydrochloride ER (SR)150mg Tablets ER 12HR Herbert Boyle M.D. Jantoven2.5mg Tablets Juana Boyle M.D. Sertraline IQY62di Tablets Herbert Ramos M.D. Metoprolol [id number] Tablets Unknown [id number] Capsules Herbert Boyle M.D. Results Test Acquired Date Facility Test Result H/L [place] Laboratory test finding 01/30/2022 [facility] Albumin 4.7 GM/DL (3.4-4.8) Basic Metabolic Panel 01/30/2022 [facility] Glucose 97 mg/dL (70-99) 1 BUN 17 mg/dL (6-20) Creatinine 0.6 mg/dL (0.5-1.0) Sodium 142 mmol/L (133-145) Potassium 4.9 mmol/L (3.6-5.2) Chloride 105 mmol/L (98-107) Bicarbonate 27 mmol/L (22-29) Anion Gap 10 (4-17) Calcium 11.3 mg/dL High (8.6-10.5 ) Estimated GFR Creatinine 105 ML/MIN/1.7 3M2 2 Laboratory test finding 01/30/2022 [facility] Phosphorus 3.4 mg/dL (2.5-4.5) 25Oh Vitamin D 27.5 NG/ML (20-50 ) PTH, Intact 65 pg/mL (15-65) 1 Fasting 2 Creatinine based est imated glomerular filtration (eGFR) in adults is calculated using the [employer] recommended 2020 CKD-EPI equation. Estimates GFR from serum creatinine, age and sex. Procedures Date Code Description Status 01/29/2024 NSHOWOFF No Show Office Visit Complet ed Medical Devices Description No Information Available Encounters Description No Information Available Assessments Date Code Description Provider 09/30/2021 E21.0 Primary hyperparathyroidism Cortez Clement M.D. 08/26/2021 E21.0 Primary hyperparathyroidism Cortez Clement M.D. Plan of Treatment No Information Available Functional Status Description No Information Available Mental Status Description No Information Available Referrals Description No Information Available
[2024-04-17 15:14] VITALS: BP 138/70; PULSE 60; BMI 29.6
--- NOTE | 2024-04-17 15:14 | MHC.OFFVIS ---
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 Today she reports that she has been doing well since her last visit here 04/17/2023. She has no concerning symptoms. She denies chest discomfort at rest or with activity. No shortness of breath, PND, orthopnea or edema. No palpitations, lightheadedness, presyncope, syncope. She has been doing well with her aspirin and Coumadin. She does report easy bruising. She does her own INR checks at home. She recently had a CT scan of the chest and is asking about results. [facility] Medical History Essential hypertension Nonrheumatic aortic (valve) stenosis Bicuspid aortic valve Surgical History History of aortic valve replacement (~06/30/20) History of aortic aneurysm repair (~06/30/20) History of D&C History of left breast biopsy Family History Father Cardiovascular disease Stroke History of coronary artery bypass graft Mother Cardiovascular disease Heart valve replaced Social History Patient Tobacco Use Status: Never used Tobacco Review of Systems Const All systems reviewed & are unremarkable except as noted in HPI and below ENT Denies dizziness Card Denies chest pain, Denies chest pain at rest, Denies chest pain with activity, Denies rapid heart rate, Denies pedal edema, Denies edema, Denies leg edema, Denies lightheadedness, Denies palpitations, Denies dyspnea, Denies dyspnea on exertion and Denies orthopnea Resp Denies cough, Denies dyspnea and Denies dyspnea on exertion GI Denies hematochezia and Denies change in stool character Musc Denies abnormal gait, Denies limited range of motion, Denies muscle cramps, Denies muscle weakness, Denies numbness, Denies radiating pain into limb, Denies stiffness and Denies tingling Neuro Denies abnormal gait, Denies dizziness, Denies numbness and Denies tingling Endo Denies palpitations Physical Exam Vital Signs: Last Vital Signs Pulse 60 04/17/24 15:14 BP 138/70 04/17/24 15:14 BMI result Body Mass Index 29.6 Const General: cooperative, healthy appearing, comfortable and no acute distress Orientation/consciousness: patient oriented x3 HEENT Head: Yes normal to inspection Chest Chest palpation & inspection: normal inspection of the chest Resp Effort & Inspection: normal respiratory effort Auscultation: clear to auscultation bilaterally, no crackles, no rales, no rhonchi and no wheezes Cardio Jugular venous distension: no JVD Rate: regular rate Rhythm: regular rhythm Heart sounds: S2 normal heart sound present, Clicking heart sound present (crisp click from mechanical aortic valve) and no rubs Peripheral pulses: Peripheral pulses 2+ throughout Neuro General: patient oriented x3 Extrem General: Yes normal to inspection, No no pedal edema and No calf tenderness Psych Appearance: grossly normal Mental Status: mental status grossly normal Speech and movement: Normal speech and movement present Office Procedures EKG Details: Today, read by me, normal sinus rhythm, rate 60, QTC 370 milliseconds [id number], Complete Assessment & Plan Assessment & Plan (1) Bicuspid aortic valve: Code(s): Q23.1 - Congenital insufficiency of aortic valve Category: Medical Plan: History of bicuspid aortic valve which develop severe stenosis and ascending aortic aneurysm. She underwent surgical repair with mechanical aortic valve and ascending aortic aneurysm repair 06/30/2020 at [facility]. She has been doing well since that time. Last echocardiogram done 10/12/2022 shows EF 55-60%, normally function mechanical aortic valve with mean gradient 14 mmHg, ascending aorta 3.1 cm, sinus of Valsalva 3.4 cm. She had a CT scan of the chest at [facility] on 03/05/2024 which showed aorta measurements without significant change from 12/27/2022, aortic root 3.5 cm, mid ascending aorta 3.6 cm. She is on aspirin and Coumadin, INR goal 2-3. She does her own INR checks at home. No bleeding issues reported. Endocarditis prophylaxis prior to dental work reviewed. Will update echocardiogram and plan to call her with the results. Cardiology office visit 1 year, sooner if needed. (2) Status post ascending aortic aneurysm repair: Code(s): Z98.890 - Other specified postprocedural states; Z86.79 - Personal history of other diseases of the circulatory system Category: Medical Plan: As above (3) Status post mechanical aortic valve replacement: Code(s): Z95.2 - Presence of prosthetic heart valve Category: Medical Plan: As above (4) Essential hypertension: Code(s): I10 - Essential (primary) hypertension Category: Medical Plan: Adequately controlled. Continue metoprolol. Plan Time spent on chart review, documentation, interview and assessment Orders: Orders CA echo transthoracic complete 04/17/24 Z86.79 - Personal history of other diseases of the circulatory system, Z95.2 - Presence of prosthetic heart valve, Z98.890 - Other specified postprocedural states Coding Level of Care Code Est Pt Level 4 (14808) Complex EM visit Add On G2211 Diagnoses Bicuspid aortic valve Q23.1 Status post ascending aortic aneurysm repair Z98.890; Z86.79 Status post mechanical aortic valve replacement Z95.2 Essential hypertension I10 CPT Codes EKG - CPT: 07338-[id number], Complete ([id number]) Time Spent (min) 30
== END 2024-04-17 15:55 | disposition home or self-care (01) ==
PROVIDERS: PCP Family Medicine; Visit Provider Nurse Practitioner Family
DX: I10 Essential (primary) hypertension (principal); Q23.1 Congenital insufficiency of aortic valve; Z95.2 Presence of prosthetic heart valve
CPT/HCPCS: 93010; 99214

== ENCOUNTER → 2024-04-17 14:26 | Outpatient (BNVA) | payer OTHER, SELFPAY | PROVIDERS: PCP Family Medicine; Visit Provider Nurse Practitioner Family | DX: I10 Essential (primary) hypertension (principal); I35.0 Nonrheumatic aortic (valve) stenosis; Q23.81 Bicuspid aortic valve; Z95.2 Presence of prosthetic heart valve; Z86.79 Personal history of other diseases of the circulatory system; Z98.890 Other specified postprocedural states | CPT/HCPCS: 93005 ==

== ENCOUNTER → 2024-04-18 12:49 | Outpatient (REF) | payer OTHER, SELFPAY ==
--- OUTSIDE RECORDS SUMMARY | 2024-04-18 12:52 | XMS_ITS | Continuity of Care Document ---
Author Organization [facility] Address [address] [place] [address] Phone [phone] Social History Type Date Description Comments Sex Unknown Medications Active Medications SIG Qnty Indications Ordering Provider Date Bupropion Hydrochloride ER (SR)150mg Tablets ER 12HR Herbert Boyle M.D. Jantoven2.5mg Tablets Juana Boyle M.D. Sertraline [id number] Tablets Herbert Ramos M.D. Metoprolol [id number] Tablets Unknown [id number] Capsules Herbert Boyle M.D. Results Test Acquired Date Facility Test Result H/L Range N ote Laboratory test finding 01/30/2022 [facility] Albumin 4.7 GM/DL (3.4-4.8) Basic Metabolic Panel 01/30/2022 [facility] Glucose 97 mg/dL (70-99) 1 BUN 17 mg/dL (6-20) Creatinine 0.6 mg/dL (0.5-1.0) Sodium 142 mmol/L (133-145) Potassium 4.9 mmol/L (3.6-5.2) Chloride 105 mmol/L (98-107) Bicarbonate 27 mmol/L (22-29) Anion Gap 10 (4-17) Calcium 11.3 mg/dL High (8.6-10.5 ) Estimated GFR Creatinine 105 ML/MIN/1.7 3M2 2 Laboratory test finding 01/30/2022 [facility] Phosphorus 3.4 mg/dL (2.5-4.5) 25Oh [...]
--- NOTE | 2024-04-18 12:54 | CA_ITS ---
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 Normal LV ejection fraction 55-60% with impaired relaxation filling pattern 2. Normally functioning mechanical aortic prosthesis with mean gradient of 12 mm Hg 3. Normal RV systolic pressure 4. No gross pericardial effusion Findings Left Ventricle Normal left ventricular size, thickness, and systolic function. The visually estimated ejection fraction is between 55-60%. Spectral Doppler is indicative of an impaired relaxation filling pattern. E/E prime ratio is between 8 and 15 consistent with indeterminate filling pressures. Right Ventricle There is moderately decreased right ventricular systolic function. Atria The left atrium is likely dilated. There is no evidence of interatrial shunt. The right atrium is normal in size. Aortic Valve A mechanical prosthetic aortic valve is present. The prosthetic aortic valve appears to be functioning normally. The mean gradient is 12 mmHg. There is no aortic valve regurgitation. Mitral Valve There is mild anterior and posterior mitral leaflet thickening. There is no mitral valve regurgitation. There is no mitral valve stenosis. Pulmonic Valve The pulmonic valve is likely normal. There is trace to mild pulmonic valve regurgitation. Tricuspid Valve Normal tricuspid valve structure. The right ventricular systolic pressure is 25 mmHg. Normal right atrial pressure. There is no evidence of pulmonary hypertension. Great Vessels All visible segments of the aorta are normal in size. The pulmonary artery was not well visualized. There is no dilatation of the ascending aorta measuring 3.00 cm. Venous The inferior vena cava is normal in size and collapses greater than 50% with inspiration. Pericardium/Pleural There is no evidence of pericardial effusion. Prior Study Comparison No significant change compared to prior study dated: 10/12/2022. Measurements 2D Linear Measurements IVSd: 0.96 0.6-0.9/0.6-1.0 cm LVIDd: 4.89 3.9-5.3/4.2-5.9 cm LVIDd Index: 2.60 2.4-3.2/2.2-3.1 cm/m2 LVIDs: 3.10 2.0-3.6 cm LVPWd: 0.89 0.7-1.1 cm LA Diam: 4.00 2.7-3.8/3.0-4.0 cm LAIDs Index: 2.13 1.5-2.3 cm/m2 LV Mass: 196.54 67-162/88-224 g LV Mass Index: 104.54 43-95/49-115 g/m2 LVOT Diam: 2.20 3.0+(-)1.3 cm 2D Systolic Function EF 4C: 55.40 >55% EF 2C: 63.20 >55% EF BiP: 58.40 >55% Mitral Valve MV Pk E: 0.84 MV PK A: 0.87 MV Decel Time: 270.00 E/A: 1.00 E'Lateral: 8.27 E'Medial: 5.98 E/E' Med: 14.00 E/E' Lat: 10.10 PHT: 79.00 MVA PHT: 2.78 Decel Placer: 3.09 Aortic Valve AoV Pk Marcos: 2.47 AoV Mn Marcos: 1.60 AoV VTI: 0.47 AoV Pk Grad: 24.00 Aov Mn Grad: 12.00 [place] Cont.VTI: 1.88 LVOT LVOT Pk Marcos: 1.06 LVOT Mn Marcos: 0.76 LVOT VTI: 0.23 LVOT Pk Grad: 4.00 LVOT Mn Grad: 3.00 LVOT Diam: 2.20 LVOT Area: 3.80 Diastolic Function MV Pk E: 0.84 MV Pk A: 0.87 E/A: 1.00 E'Medial: 5.98 E/E' Med: 14.00 E' Laterial: 8.27 E/E' Lat: 10.10 Right Ventricle TAPSE (mm): 10.20 TVS' Marcos: 7.80 Tricuspid Valve TR Pk Marcos: 2.34 TR Pk Grad: 22.00 RA Press: 3.00 RVSP: 25.00 Great Vessels Aorta Sinus of Valsalva: 3.60 2.0-3.5 cm Ao Asc: 3.00 2.1-3.4 cm Ao Arch: 3.30 Pulmonary Valve PV Pk Marcos: 1.06 Peak PV Grad: 4.00 Updated in Other Vendor System with Status of Final Lazaro Caba MD electronically signed on 04/19/2024 2:37:25 PM with status of Final
== END ==
LOC: HO.CARD 12:49
PROVIDERS: Visit Provider Nurse Practitioner Family
DX: Z95.2 Presence of prosthetic heart valve (principal); Z86.79 Personal history of other diseases of the circulatory system; Z98.890 Other specified postprocedural states
CPT/HCPCS: 93306

== ENCOUNTER → 2024-04-18 12:54 | Outpatient (BNV) | payer OTHER, SELFPAY | PROVIDERS: Visit Provider Internal Medicine Cardiovascular Disease | DX: I37.1 Nonrheumatic pulmonary valve insufficiency (principal); Z95.2 Presence of prosthetic heart valve | CPT/HCPCS: 93306 ==

== ENCOUNTER → 2024-06-25 11:31 | Outpatient (REF) | payer BC, SELFPAY ==
--- NOTE | 2024-06-25 11:36 | ECG_ITS ---
Test Reason : preop op Blood Pressure : */* mmHG Vent. Rate : 57 BPM Atrial Rate : 57 BPM P-R Int : 166 ms QRS Dur : 90 ms QT Int : 396 ms P-R-T Axes : 61 23 65 degrees QTcB Int : 385 ms Sinus bradycardia Otherwise normal ECG No previous ECGs available Referred By: Herbert Boyle Electronically Signed By: MARGARITA GEORGE
--- OUTSIDE RECORDS SUMMARY | 2024-06-25 12:11 | XMS_ITS | Continuity of Care Document ---
Author Organization [facility] Address [address] [place] [address] Phone [phone] Social History Type Date Description Comments Sex Unknown Medications Active Medications SIG Qnty Indications Ordering Provider Date Bupropion Hydrochloride ER (SR)150mg Tablets ER 12HR Herbert Boyle M.D. Jantoven2.5mg Tablets Juana Boyle M.D. Sertraline [id number] Tablets Herbert Ramos M.D. Metoprolol [id number] Tablets Unknown [id number] Capsules Herbert Boyle M.D. Results Test Acquired Date Facility Test Result H/L Range N ote Laboratory test finding 01/30/2022 [facility] Albumin 4.7 GM/DL (3.4-4.8) Basic Metabolic Panel 01/30/2022 [facility] Glucose 97 mg/dL (70-99) 1 BUN 17 mg/dL (6-20) Creatinine 0.6 mg/dL (0.5-1.0) Sodium 142 mmol/L (133-145) Potassium 4.9 mmol/L (3.6-5.2) Chloride 105 mmol/L (98-107) Bicarbonate 27 mmol/L (22-29) Anion Gap 10 (4-17) Calcium 11.3 mg/dL High (8.6-10.5 ) Estimated GFR Creatinine 105 ML/MIN/1.7 3M2 2 Laboratory test finding 01/30/2022 [facility] Phosphorus 3.4 mg/dL (2.5-4.5) 25Oh [...]
== END ==
LOC: HO.CARD 11:31
PROVIDERS: PCP Family Medicine; Visit Provider Family Medicine
DX: Z01.818 Encounter for other preprocedural examination (principal); Z95.2 Presence of prosthetic heart valve; I49.3 Ventricular premature depolarization
CPT/HCPCS: 93005

== ENCOUNTER → 2024-06-25 11:36 | Outpatient (BNV) | payer BC, SELFPAY | PROVIDERS: PCP Family Medicine; Visit Provider Internal Medicine | DX: R00.1 Bradycardia, unspecified (principal) | CPT/HCPCS: 93010 ==

== ENCOUNTER 2024-06-25 13:57 | Outpatient (REF) | payer BC, SELFPAY ==
--- OUTSIDE RECORDS SUMMARY | 2024-06-25 14:16 | XMS_ITS | Continuity of Care Document ---
Author Organization [facility] Address [address] [place] [address] Phone [phone] Social History Type Date Description Comments Sex Unknown Medications Active Medications SIG Qnty Indications Ordering Provider Date Bupropion Hydrochloride ER (SR)150mg Tablets ER 12HR Herbert Boyle M.D. Jantoven2.5mg Tablets Juana Boyle M.D. Sertraline [id number] Tablets Herbert Ramos M.D. Metoprolol [id number] Tablets Unknown [id number] Capsules Herbert Boyle M.D. Results Test Acquired Date Facility Test Result H/L Range N ote Laboratory test finding 01/30/2022 [facility] Albumin 4.7 GM/DL (3.4-4.8) Basic Metabolic Panel 01/30/2022 [facility] Glucose 97 mg/dL (70-99) 1 BUN 17 mg/dL (6-20) Creatinine 0.6 mg/dL (0.5-1.0) Sodium 142 mmol/L (133-145) Potassium 4.9 mmol/L (3.6-5.2) Chloride 105 mmol/L (98-107) Bicarbonate 27 mmol/L (22-29) Anion Gap 10 (4-17) Calcium 11.3 mg/dL High (8.6-10.5 ) Estimated GFR Creatinine 105 ML/MIN/1.7 3M2 2 Laboratory test finding 01/30/2022 [facility] Phosphorus 3.4 mg/dL (2.5-4.5) [...]
[2024-06-25 16:25] LABS: MANUAL DIFF FLAG NO
[2024-06-25 16:38] LABS: Basophils Percent Auto 0.2 % (0-2); Eosinophils Absolute Auto 0.1 X10*3/uL (0.0-0.4); Eosinophils Percent Auto 1.5 % (0-4); Hematocrit 41.5 % (37.0-47.0); Hemoglobin 13.8 g/dl (12.0-16.0); Imm Gran Abs Auto 0.01 X10*3/uL (0.00-0.03); Imm Gran Pct Auto 0.2 % (0.0-0.4); Lymphocytes Absolute Auto 1.2 X10*3/uL (1.2-4.9); Lymphocytes Percent Auto 22.5 % (20-40); Mean Corpuscular HGB Conc 33.3 g/dl (31.0-35.0); Mean Corpuscular Hemoglobin 30.3 pg (27.0-33.0); Mean Platelet Volume 10.1 fL (9.4-12.3); Monocytes Absolute Auto 0.3 X10*3/uL (0.1-1.2); Neutrophils Absolute Auto 3.8 x10*3/uL (2.0-8.3); Neutrophils Percent Auto 69.6 % (45-73); Platelet Count 223 X10*3/uL (160-400); Red Blood Count 4.56 X10*6/uL (4.20-5.50); Red Cell Distribution Width 14.1 % (11.0-16.0); White Blood Count 5.5 X10*3/uL (4.8-10.8)
[2024-06-25 16:43] LABS: Anion Gap 10 (12-20); Blood Urea Nitrogen 16 mg/dL (9-16); Calcium 10.8 mg/dL (8.4-10.2); Carbon Dioxide 24 mmol/L (22-29); Chloride 110 mmol/L (96-108); Estimated Glomerular Filt Rate > 60; Potassium 4.1 mmol/L (3.3-5.1); Sodium 140 mmol/L (135-145)
== END 2024-06-25 13:58 | disposition home or self-care (01) ==
LOC: HO.HMGCLDS 13:57
PROVIDERS: PCP Family Medicine; Visit Provider Family Medicine
DX: C95.90 Leukemia, unspecified not having achieved remission (principal); E83.52 Hypercalcemia; I10 Essential (primary) hypertension
CPT/HCPCS: 36415; 80051; 82310; 82565; 84520; 85025

== ENCOUNTER 2024-10-02 19:52 | Emergency (ER) | payer BC, SELFPAY ==
--- NOTE | 2024-10-02 19:54 | ECG_ITS ---
Test Reason : CHEST PAIN Blood Pressure : */* mmHG Vent. Rate : 161 BPM Atrial Rate : * BPM P-R Int : * ms QRS Dur : 84 ms QT Int : 216 ms P-R-T Axes : * 4 165 degrees QTcB Int : 353 ms Atrial fibrillation with rapid ventricular response Minimal voltage criteria for LVH, may be normal variant ( R in aVL ) Marked ST abnormality, possible lateral subendocardial injury Abnormal ECG When compared with ECG of 25-Jun-2024 11:41, Atrial fibrillation has replaced Sinus rhythm Vent. rate has increased by [address] now depressed in Lateral leads T wave inversion now evident in Lateral leads Referred By: Eloisa Quigley Electronically Signed By: CAREY DESIR MD
--- NOTE | 2024-10-02 20:07 | ED.ARRPALP ---
HPI - Arrhythmia/Palpitations General Chief Complaint: Arrhythmia/Palpitations Stated Complaint: chest pain, tachycardia? Time Seen by Provider: 10/02/24 20:06 Source: patient Mode of arrival: ambulatory Limitations: no limitations History of Present Illness ED Provider: HPI narrative: Patient's history of hypotension bicuspid aortic valve status post mechanical aortic valve replacement on Coumadin comes here as for an hours prior to arrival patient noticed palpitation which is not going away making her dizzy in the past she had few extra beats but never been diagnose other than premature beats patient never had similar episodes in the past on arrival patient's heart rate was in range of 170s patient is taking metoprolol 25 mg twice daily and took her evening metoprolol or at 16:00 patient was feeling/short of breath with palpitation and chest discomfort Related Data Home Medications ?Medication ?Instructions ?Recorded ?Confirmed cholecalciferol (vitamin D3) 25 25 mcg PO DAILY 03/23/20 04/17/24 mcg (1,000 unit) capsule warfarin 2.5 mg tablet 7.5 mg PO DAILY 04/17/23 04/17/24 sertraline 50 mg tablet 50 mg PO DAILY 04/17/24 04/17/24 Previous Rx's ?Medication ?Instructions ?Recorded metoprolol tartrate 25 mg tablet 25 mg PO BID #180 tabs 11/01/23 aspirin 81 mg tablet,delayed 81 mg PO DAILY #90 tabs 08/11/24 release Allergies Allergy/AdvReac Type Severity Reaction Status Date / Time No Known Allergies Allergy Verified 10/02/24 20:18 Review of Systems Review of Systems: Yes all other systems are reviewed and are negative [facility] Past Medical History Medical History Essential hypertension Nonrheumatic aortic (valve) stenosis Bicuspid aortic valve Surgical History History of aortic valve replacement (~06/30/20) History of aortic aneurysm repair (~06/30/20) History of D&C History of left breast biopsy Family History Family History Father Cardiovascular disease Stroke History of coronary artery bypass graft Mother Cardiovascular disease Heart valve replaced Social History Social History Patient Tobacco Use Status: Never used Tobacco Smoked in Last 30 Days: No Use of substances other than those prescribed or required for medical reasons: No Advance Directives: No Advance Directives Information Provided: Yes Do you have a plan to hurt others: No Plan Physical Exam Vital Signs: Vital Signs: Last Vital Signs Temp 98.6 F 10/02/24 22:22 Pulse 67 10/02/24 22:22 Resp 16 10/02/24 22:22 BP 114/63 10/02/24 22:22 Pulse Ox 100 10/02/24 22:22 O2 Del Method Room Air 10/02/24 22:22 BMI result Body Mass Index 29.6 Appearance: Alert. Oriented X3. No acute distress. Eyes: PERRLA, No Nystagmus ENT: Pharynx normal. Oral Mucosa moist Neck: Normal inspection. Neck supple. CVS: Irregularly heart rate with tachycardic. Pulses normal. Respiratory: No respiratory distress. Equal air entry bilateral, no wheezing/rales/rhonchi Abdomen: Soft and nontender. Bowel sounds are present, no mass palpable, no CVA tenderness Skin: Skin warm and dry. Normal skin color. Normal skin turgor. Extremities: No lower extremity edema. No calf tenderness Neuro: Oriented X 3. No motor deficit. Medications Administered Discontinued Medications Generic Name Dose Route Start Last Admin Trade Name Freq PRN Reason Stop Dose Admin Diltiazem HCl 20 mg 10/02/24 20:17 10/02/24 20:19 Diltiazem Hcl 50 Mg/10 Ml Vial IVPUSH 10/02/24 20:18 20 mg STAT STA Administration Metoprolol Tartrate 5 mg 10/02/24 20:08 10/02/24 20:15 Metoprolol Tartrate 5 Mg/5 Ml Vial IVPUSH 10/02/24 20:09 5 mg ONCE ONE Administration Protocol Medical Decision Making Medical Decision Making MDM Narrative: Patient has new onset atrial fibrillation with rapid ventricular rate on arrival patient's heart rate was in 180s. Patient received IV Lopressor with partial response and was given 20 mg of Cardizem and converted to normal sinus rhythm with ventricular rate in 60 patient advised to follow with senior safety support manager and to continue metoprolol Differential Diagnosis Differential Diagnoses: The differential diagnosis associated with the presentation includes Atrial fibrillation/flutter/SVT/PVCs/PACs Lab Data MDM Lab Attestation statement: I reviewed the patient's lab results. 10/02/24 20:12 10/02/24 20:12 Labs: Lab Results 10/02/24 Range/Units 20:12 WBC 10.0 (4.8-10.8) X10*3/uL RBC 4.58 (4.20-5.50) X10*6/uL Hgb 13.9 (12.0-16.0) g/dl Hct 40.9 (37.0-47.0) % MCV 89.3 (80.0-98.0) fL MCH 30.3 (27.0-33.0) pg MCHC 34.0 (31.0-35.0) g/dl RDW 14.4 (11.0-16.0) % Plt Count 246 (160-400) X10*3/uL MPV 9.3 L (9.4-12.3) fL Immature Gran % (Auto) 0.3 (0.0-0.4) % Neut % (Auto) 74.9 H (45-73) % Lymph % (Auto) 17.9 L (20-40) % [place] % (Auto) 6.1 (2-11) % Eos % (Auto) 0.7 (0-4) % Baso % (Auto) 0.1 (0-2) % Lymph # (Auto) 1.8 (1.2-4.9) X10*3/uL [place] # (Auto) 0.6 (0.1-1.2) X10*3/uL Eos # (Auto) 0.1 (0.0-0.4) X10*3/uL Baso # (Auto) 0.0 (0.0-0.2) X10*3/uL Abs Immat Gran (auto) 0.03 (0.00-0.03) X10*3/uL Absolute Neuts (auto) 7.5 (2.0-8.3) x10*3/uL Absolute Nucleated RBC 0.000 (0.0-0.012) X10*3/uL Nucleated RBC % (auto) 0.0 (0.0-0.2) /100WBC PT 17.2 H (10.9-12.4) SEC INR 1.5 H (0.9-1.1) APTT 36.8 (26.0-36.8) SEC Sodium 140 (135-145) mmol/L Potassium 4.5 (3.3-5.1) mmol/L Chloride 108 (96-108) mmol/L Carbon Dioxide 24 (22-29) mmol/L Anion Gap 13 (12-20) BUN 20 H (9-16) mg/dL Creatinine 0.62 (0.5-1.4) mg/dL Estim Creat Clear Calc 100.0 Estimated GFR > 60 Random Glucose 144 H (60-115) mg/dL Calcium 11.7 H D (8.4-10.2) mg/dL Magnesium 2.4 (1.6-2.6) mg/dL Total Bilirubin 0.2 (0.0-1.0) mg/dL AST 46 H (5-31) U/L ALT 21 (0-31) U/L Alkaline Phosphatase 109 (39-117) U/L Troponin I High Sens 4.1 (<3.5-17.0) ng/L B-Natriuretic Peptide 123 H (<100) pg/mL Total Protein 8.4 H (6.5-8.0) g/dL Albumin 4.5 (3.5-5.0) g/dL Independent Interpretation I performed an independent interpretation of an: EKG Interpretation: Tachycardic narrow complex irregularly irregular heart rate of 161 no acute ischemic changes Radiology Impression Discussion of test interpretation with radiology: I have reviewed the radiologist's reading. Discharge Plan Discharge Clinical Impression: Atrial fibrillation Patient Disposition: Home, Self-Care Instructions: A-fib (Atrial Fibrillation) (ED) Additional Instructions: Decreased caffeine intake Continue metoprolol You may take extra dose of metoprolol when you have palpitation episode Follow up with the senior safety support manager Report to the ER if recurrence of the episode Prescriptions: No Action metoprolol tartrate 25 mg tablet 25 mg PO BID Qty: 180 3RF aspirin 81 mg tablet,delayed release (DR/EC) 81 mg PO DAILY Qty: 90 3RF cholecalciferol (vitamin D3) 25 mcg (1,000 unit) capsule 25 mcg PO DAILY warfarin 2.5 mg tablet 7.5 mg PO DAILY sertraline 50 mg tablet 50 mg PO DAILY Interventions: ED Discharge Assessment Last Done: 10/02/24 22:22 Discharge Date/Time: 10/02/24 22:24 Print Language: Ethiopian
[2024-10-02 20:15] VITALS: BP 164/97; PULSE 180; RESP 16; TEMP 37.1; O2SAT 95; BMI 29.6
[2024-10-02] MEDS: Metoprolol Tartrate 5 MG/5 ML VIAL IVPUSH (20:15)
[2024-10-02 20:18] LABS: MANUAL DIFF FLAG NO
[2024-10-02 20:19] VITALS: BP 151/99; PULSE 141
[2024-10-02 20:19] LABS: Basophils Percent Auto 0.1 % (0-2); Eosinophils Absolute Auto 0.1 X10*3/uL (0.0-0.4); Eosinophils Percent Auto 0.7 % (0-4); Hematocrit 40.9 % (37.0-47.0); Hemoglobin 13.9 g/dl (12.0-16.0); Imm Gran Abs Auto 0.03 X10*3/uL (0.00-0.03); Imm Gran Pct Auto 0.3 % (0.0-0.4); Lymphocytes Absolute Auto 1.8 X10*3/uL (1.2-4.9); Lymphocytes Percent Auto 17.9 % (20-40); Mean Corpuscular Hemoglobin 30.3 pg (27.0-33.0); Mean Corpuscular Volume 89.3 fL (80.0-98.0); Mean Platelet Volume 9.3 fL (9.4-12.3); Monocytes Absolute Auto 0.6 X10*3/uL (0.1-1.2); Monocytes Percent Auto 6.1 % (2-11); Neutrophils Absolute Auto 7.5 x10*3/uL (2.0-8.3); Neutrophils Percent Auto 74.9 % (45-73); Platelet Count 246 X10*3/uL (160-400); Red Blood Count 4.58 X10*6/uL (4.20-5.50); Red Cell Distribution Width 14.4 % (11.0-16.0)
[2024-10-02] MEDS: dilTIAZem HCL 50 MG/10 ML VIAL 20 MG IVPUSH (20:19)
--- NOTE | 2024-10-02 20:22 | ECG_ITS ---
Test Reason : AFIB Blood Pressure : */* mmHG Vent. Rate : 77 BPM Atrial Rate : * BPM P-R Int : * ms QRS Dur : 88 ms QT Int : 328 ms P-R-T Axes : * 11 91 degrees QTcB Int : 371 ms Atrial fibrillation Cannot rule out Anterior infarct , age undetermined Abnormal ECG When compared with ECG of 02-Oct-2024 19:58, Vent. rate has decreased by [address] less depressed in Lateral leads T wave inversion less evident in Lateral leads Referred By: Tomás Mohr Electronically Signed By: CAREY DESIR MD
[2024-10-02 20:33] LABS: INTERNATIONAL NORM RATIO 1.5 (0.9-1.1); Prothrombin Time 17.2 SEC (10.9-12.4)
[2024-10-02 20:34] LABS: Alanine Aminotransferase 21 U/L (0-31); Albumin Level 4.5 g/dL (3.5-5.0); Alkaline Phosphatase 109 U/L (39-117); Anion Gap 13 (12-20); Aspartate Amino Transferase 46 U/L (5-31); Bilirubin Total 0.2 mg/dL (0.0-1.0); Blood Urea Nitrogen 20 mg/dL (9-16); Calcium 11.7 mg/dL (8.4-10.2); Carbon Dioxide 24 mmol/L (22-29); Chloride 108 mmol/L (96-108); Estimated Glomerular Filt Rate > 60; Glucose Random 144 mg/dL (60-115); Magnesium 2.4 mg/dL (1.6-2.6); Potassium 4.5 mmol/L (3.3-5.1); Sodium 140 mmol/L (135-145); Total Protein 8.4 g/dL (6.5-8.0)
[2024-10-02 20:36] LABS: Partial Thromboplastin Time 36.8 SEC (26.0-36.8)
[2024-10-02 20:39] LABS: B Type Natriuretic Peptide 123 pg/mL (<100)
--- NOTE | 2024-10-02 20:40 | PC.NURSE ---
pt brought to ed 15 from after ekg showed rapid HR. IV established and pt placed on template worker. lopressor given per MD order which improved HR from 170-180s to 140s. then given diltiazem per mar which improved HR to 60s-70s. remains afib rhythm, ekg obtained to confirmed. pt reports sx all improved. resting comfortably. call quan within reach. at bedside.
[2024-10-02 20:41] LABS: Troponin-I High Sensitivity 4.1 ng/L (<3.5-17.0)
--- NOTE | 2024-10-02 21:44 | ECG_ITS ---
Test Reason : at fib Blood Pressure : */* mmHG Vent. Rate : 67 BPM Atrial Rate : 67 BPM P-R Int : 166 ms QRS Dur : 86 ms QT Int : 358 ms P-R-T Axes : 31 7 41 degrees QTcB Int : 378 ms Normal sinus rhythm Possible Anterior infarct (cited on or before 02-Oct-2024) Abnormal ECG When compared with ECG of 02-Oct-2024 20:19, Sinus rhythm has replaced Atrial fibrillation ST no longer depressed in Lateral leads T wave inversion no longer evident in Lateral leads Referred By: Tomás Mohr Electronically Signed By: CAREY DESIR MD
[2024-10-02 22:22] VITALS: BP 114/63; PULSE 67; RESP 16; TEMP 37; O2SAT 100
[2024-10-02 22:23] VITALS: PULSE 67
== END 2024-10-02 22:24 | disposition home or self-care (01) ==
PROVIDERS: Emergency Provider Internal Medicine; PCP Family Medicine
DX: I48.91 Unspecified atrial fibrillation (principal); I49.9 Cardiac arrhythmia, unspecified; R00.2 Palpitations; R42 Dizziness and giddiness; R06.02 Shortness of breath; Z79.899 Other long term (current) drug therapy
CPT/HCPCS: 36415; 80053; 83735; 83880; 84484; 85025; 85610; 85730; 93005; 96374; 96375; 99284; 99285

== ENCOUNTER → 2024-10-02 19:54 | Outpatient (BNV) | payer BC, SELFPAY | PROVIDERS: Emergency Provider Internal Medicine; PCP Family Medicine; Visit Provider Internal Medicine Cardiovascular Disease | DX: R94.31 Abnormal electrocardiogram [ECG] [EKG] (principal); I48.91 Unspecified atrial fibrillation | CPT/HCPCS: 93010 ==

== ENCOUNTER 2024-10-06 14:07 | Outpatient (AMB) | payer BC, SELFPAY ==
[2024-10-06 14:15] VITALS: BP 124/78; PULSE 82; BMI 29.3
--- NOTE | 2024-10-06 14:15 | MHC.OFFVIS ---
Vital Signs 10/06/24 14:15 Height 5 ft 5 in Weight 176 lb BMI 29.3 BP 124/78 Blood Pressure Location Lt brachial Position Sitting Pulse 82 Pulse Source Pulse Oximeter Intake [place] [facility] [place] Allergies No Known Allergies Allergy (Verified 10/02/24 20:18) Medication List - Last Reconciled 10/06/24 by Henry Gomez MD aspirin 81 mg PO DAILY atropine 1% drps ophthalmic (eye) cholecalciferol (vitamin D3) 25 mcg PO DAILY difluprednate 0.05% drps ophthalmic-Right metoprolol tartrate orally 2 times a day; 25mg am; 50mg pm. warfarin 7.5 mg PO DAILY HPI Comments Details: Rere returns for follow-up. She underwent mechanical aortic valve replacement as well as aortic aneurysm repair. History of bicuspid valve. Recently, it seems that she was just not feeling well for few days with nonspecific symptoms. After that, had palpitations and she came to the ER and found to be in atrial fibrillation rapid rate. Received IV Lopressor/diltiazem and then converted to sinus rhythm. PCP has increase the dose of metoprolol at home. After that, she states she is feeling good. No further palpitations. Some shortness of breath with activity which has been unchanged for a while. Could be just deconditioning. [facility] Medical History Essential hypertension Nonrheumatic aortic (valve) stenosis Bicuspid aortic valve Surgical History History of aortic valve replacement (~06/30/20) History of aortic aneurysm repair (~06/30/20) History of D&C History of left breast biopsy Family History Father Cardiovascular disease Stroke History of coronary artery bypass graft Mother Cardiovascular disease Heart valve replaced Social History Patient Tobacco Use Status: Never used Tobacco Review of Systems Const Denies weakness ENT Denies dizziness Card Denies chest pain, Denies chest pain with activity, Denies syncope, Denies rapid heart rate, Denies pedal edema, Denies edema, Denies leg edema, Denies lightheadedness, Denies palpitations, Denies dyspnea, Denies dyspnea on exertion and Denies orthopnea Resp Denies cough, Denies dyspnea and Denies dyspnea on exertion GI Denies hematochezia and Denies change in stool character Musc Denies abnormal gait, Denies muscle cramps, Denies muscle weakness, Denies numbness, Denies radiating pain into limb and Denies tingling Neuro Denies abnormal gait, Denies dizziness, Denies syncope, Denies numbness, Denies tingling and Denies weakness Endo Denies palpitations Physical Exam Vital Signs: Last Vital Signs Pulse 82 10/06/24 14:15 BP 124/78 10/06/24 14:15 BMI result Body Mass Index 29.3 Const General: cooperative, comfortable and no acute distress Orientation/consciousness: patient oriented x3 HEENT Other: Unremarkable Neck Neck: Yes normal visual inspection Chest Chest palpation & inspection: normal inspection of the chest Resp Auscultation: clear to auscultation bilaterally and no crackles Cardio Jugular venous distension: no JVD Palpation: normal PMI Heart sounds: no gallops, Murmur heart sound present systolic II/ and at the right sternal border, no rubs and Other heart sounds present (Normal prosthetic heart sounds) GI Palpation (GI): Soft to palpation Back/Spine/Pelvis Other: unremarkable Skin General skin exam: no rashes or lesions noted Neuro General: patient oriented x3 Extrem General: Yes no clubbing, cyanosis or edema Psych Mental Status: mental status grossly normal Assessment & Plan Assessment & Plan (1) Status post mechanical aortic valve replacement: Code(s): Z95.2 - Presence of prosthetic heart valve Category: Surgical Plan: Continue Aspirin and Coumadin. Target INR 1.5-2. Infective endocarditis prophylaxis per protocol. In the echocardiogram from 04/2024, normally functioning mechanical aortic valve. (2) Status post ascending aortic aneurysm repair: Code(s): Z98.890 - Other specified postprocedural states; Z86.79 - Personal history of other diseases of the circulatory system Category: Surgical Plan: Stable per CTA 02/2024. (3) PAF (paroxysmal atrial fibrillation): Code(s): I48.0 - Paroxysmal atrial fibrillation Category: Medical Plan: Recent ER presentation with atrial fibrillation/rapid rate. Now in sinus rhythm. Check Holter monitor. Avoid caffeine/alcohol. Beta-braeden dose has already been increased by PCP. If she indeed gets recurrent atrial fibrillation, we will need to increase the target INR for Coumadin. We also discussed about possible ablation in the future as necessary. (4) Essential hypertension: Code(s): I10 - Essential (primary) hypertension Category: Medical Plan: Stable. No changes. Plan Discussion Notes I discussed the ongoing management of atrial fibrillation with the patient, emphasizing the importance of medication adherence to metoprolol at the current dosage. I explained the potential necessity of future catheter ablation should the frequency of atrial fibrillation episodes increase. We reviewed lifestyle factors, such as reduced alcohol and caffeine intake, which are critical in minimizing symptom recurrence. Risks and benefits of current treatment options and possible future interventions were discussed thoroughly. Patient indicated understanding and agreement with the current management approach. Follow-up planning and future monitoring were addressed accordingly. Patient was informed and verbally consented to the use of an ambient scribe for clinic note documentation during this visit. Orders: Orders ECG 7 day holter monitor Today I48.0 - Paroxysmal atrial fibrillation Patient Instructions: - Continue metoprolol as prescribed. - Monitor symptoms and report any significant changes. - Avoid alcohol and caffeine to help control heart rhythm. - Seek medical attention if experiencing severe or persistent palpitations. - Follow up as scheduled for re-evaluation. Coding Level of Care Code Est Pt Level 4 (50686) Complex EM visit Add On G2211 Diagnoses Status post mechanical aortic valve replacement Z95.2 Status post ascending aortic aneurysm repair Z98.890; Z86.79 PAF (paroxysmal atrial fibrillation) I48.0 Essential hypertension I10
--- OUTSIDE RECORDS SUMMARY | 2024-10-06 15:23 | XMS_ITS | Continuity of Care Document ---
Author Organization [facility] Address [address] [place] [address] Phone [phone] Social History Type Date Description Comments Sex Unknown Medications Active Medications SIG Qnty Indications Ordering Provider Date Bupropion Hydrochloride ER (SR)150mg Tablets ER 12HR Herbert Boyle M.D. Jantoven2.5mg Tablets Juana Boyle M.D. Sertraline [id number] Tablets Herbert Ramos M.D. Metoprolol [id number] Tablets Unknown [id number] Capsules Herbert Boyle M.D. Results Test Acquired Date Facility Test Result H/L Range N ote Albumin 01/30/2022 [facility] Albumin 4.7 GM/DL (3.4-4.8) Basic Metabolic Panel 01/30/2022 [facility] Glucose 97 mg/dL (70-99) 1 BUN 17 mg/dL (6-20) Creatinine 0.6 mg/dL (0.5-1.0) Sodium 142 mmol/L (133-145) Potassium 4.9 mmol/L (3.6-5.2) Chloride 105 mmol/L (98-107) Bicarbonate 27 mmol/L (22-29) Anion Gap 10 (4-17) Calcium 11.3 mg/dL High (8.6-10.5 ) Estimated GFR Creatinine 105 ML/MIN/1.7 3M2 2 Phosphorus 01/30/2022 [facility] Phosphorus 3.4 mg/dL (2.5-4.5) 25Oh Vitamin D 01/30/2022 [facility] 25Oh Vitamin D 27.5 NG/ML (20-50) PTH, Intact 01/30/2022 [facility] PTH, Intact 65 pg/mL (15-65) 1 Fasting [...]
== END 2024-10-06 14:39 | disposition home or self-care (01) ==
LOC: HO.HCS 14:07
PROVIDERS: PCP Family Medicine; Visit Provider Internal Medicine
DX: Z95.2 Presence of prosthetic heart valve (principal); Z98.890 Other specified postprocedural states; Z86.79 Personal history of other diseases of the circulatory system; I48.0 Paroxysmal atrial fibrillation; I10 Essential (primary) hypertension
CPT/HCPCS: 99214

== ENCOUNTER → 2024-10-06 14:07 | Outpatient (BNVA) | payer BC, SELFPAY | PROVIDERS: PCP Family Medicine; Visit Provider Internal Medicine ==

== ENCOUNTER → 2024-10-14 13:30 | Outpatient (REF) | payer BC, SELFPAY ==
--- OUTSIDE RECORDS SUMMARY | 2024-10-14 15:57 | XMS_ITS | Continuity of Care Document ---
Author Organization [facility] Address [address] [place] [address] Phone [phone] Social History Type Date Description Comments Sex Female Sex Unknown Medications Active Medications SIG Qnty Indications Ordering Provider Date Bupropion Hydrochloride ER (SR)150mg Tablets ER 12HR Herbert Boyle M.D. Jantoven2.5mg Tablets Juana Boyle M.D. Sertraline [id number] Tablets Herbert Ramos M.D. Metoprolol [id number] Tablets Unknown [id number] Capsules Herbert Boyle M.D. Results Test Acquired Date Facility Test Result H/L Range N ote Albumin 01/30/2022 [facility] Albumin 4.7 GM/DL (3.4-4.8) Basic Metabolic Panel 01/30/2022 [facility] Glucose 97 mg/dL (70-99) 1 BUN 17 mg/dL (6-20) Creatinine 0.6 mg/dL (0.5-1.0) Sodium 142 mmol/L (133-145) Potassium 4.9 mmol/L (3.6-5.2) Chloride 105 mmol/L (98-107) Bicarbonate 27 mmol/L (22-29) Anion Gap 10 (4-17) Calcium 11.3 mg/dL High (8.6-10.5 ) Estimated GFR Creatinine 105 ML/MIN/1.7 3M2 2 Phosphorus 01/30/2022 [facility] Phosphorus 3.4 mg/dL (2.5-4.5) 25Oh Vitamin D 01/30/2022 [facility] 25Oh Vitamin D 27.5 NG/ML (20-50) PTH, Intact 01/30/2022 [facility] PTH, Intact 65 pg/mL (15-65) [...]
== END ==
LOC: HO.CARD 13:30
PROVIDERS: PCP Family Medicine; Visit Provider Internal Medicine
DX: I48.0 Paroxysmal atrial fibrillation (principal)
CPT/HCPCS: 93242

== ENCOUNTER → 2024-10-14 13:33 | Outpatient (BNV) | payer BC, SELFPAY | PROVIDERS: PCP Family Medicine; Visit Provider Internal Medicine | DX: I47.10 Supraventricular tachycardia, unspecified (principal); I49.3 Ventricular premature depolarization | CPT/HCPCS: 93244 ==

== ENCOUNTER 2025-01-23 07:48 | Outpatient (AMB) | payer BC, SELFPAY ==
--- OUTSIDE RECORDS SUMMARY | 2025-01-23 07:51 | XMS_ITS | Clinical Summary ---
Author Organization [facility] Address [address] [place] [phone] Phone Care Team Providers Care Computer Equipment Installer Name Role Phone Herbert Boyle MD Primary Care Provider [phone] Allergies No known active allergies Medications warfarin (COUMADIN) 2.5 MG tablet 02/28/2021 Active metoprolol tartrate (LOPRESSOR) 25 MG tablet 01/21/2021 Active aspirin 81 MG EC tablet 01/21/2021 Active Active Problems Problem Noted Date Diagnosed Date Early menopause 03/18/2021 Overview (03/18/2021): Age 40 Immunizations Immunization Administration Dates Next Due INFLUENZA, SPLIT VIRUS, TRIVALENT PF 04/07/2015 Influenza Quadrivalent MDCK w/Preservative IM Pneumococcal polysaccharide PPSV23 07/03/2020 Social History Tobacco Use Types Packs/Day Years Used Date Smoking Tobacco: Never Smokeless Tobacco: Never Alcohol Use Standard Drinks/Week Comments Yes 1 (1 standard drink = 0.6 oz pur e alcohol) weekly Education Answer Date Recorded Are you interested in more education? Not on bernardino e 09/02/2022 Are you concerned about learning? Not on file 09/02/2022 No 09/02/2022 No 09/02/2022 Digital Access Answer Date Recorded No 10/01/2022 No 10/01/2022 No 10/01/2022 Reliable internet access at home? Not on file 10/01/2022 Device with a working camera? Not on file Comments No Sex and Gender Information Value Date Recorded Sex Assigned at Not on file Legal Sex Female 11:02 AM EDT Gender Identity Not on file Sexual Orientation Not on file Last Filed Vital Signs Vital Sign Reading Time Taken Comments Blood Pressure 120/80 03/18/2021 2:26 PM EST Pulse - - Temperature - - Respiratory Rate - - Oxygen Saturation - - Inhaled Oxygen Concentration - - Weight 73.7 kg (162 lb 6.4 oz) 03/18/2021 2:26 P M EST Height 165.1 cm (5' 5 ) 03/18/2021 2:26 PM EST Body Mass Index 27.02 03/18/2021 2:26 PM EST Plan of Treatment Health Maintenance Due Date Last Done Comments Adult Td,Tdap Booster 1965 LIPID PANEL 1965 DEPRESSION SCREENING 1975 HEPATITIS C SCREENING 1981 HIV ONE-TIME SCREENING (18-6 5 YEARS) 1981 MAMMOGRAM 2003 COLOGUARD 2008 COLONOSCOPY 2008 COLORECTAL CANCER SCREENING 2008 FIT TEST 2008 FOBT 2008 SIGMOIDOSCOPY 2008 VIRTUAL COLONOSCOPY 2008 ZOSTER VACCINES (1 of 2) 2013 PNEUMOCOCCAL VACCINES (50+ years) (2 of 2 - PCV) 07/03/2021 07/03/2020 PAP SMEAR 03/18/2024 03/18/2021 INFLUENZA VACCINE (#1) 2024 , 04/07/2015 COVID-19 VACCINE (3 - 2024-2 6 season) 2025 09/24/2020, 08/27/2020 RSV VACCINE (1 - 1-dose 75+ series) 2038 SMOKING STATUS SCREENING (On ce After 26 Yrs) Completed 03/18/2021 HEPATITIS A VACCINES Aged Out No long er eligible based on patient's age to complete this topic HIB VACCINES Aged Out No longer eligi ble based on patient's age to complete this topic MENINGOCOCCAL VACCINES (ACWY) Aged Out No longer eligible based on patient's age to complete this topic MENINGOCOCCAL VACCINES (B) Aged Out N o longer eligible based on patient's age to complete this topic Medical Devices Not on file Procedures Procedure Name Priority Date/Time Associated Diagnosis Comments PAP TEST Routine 03/18/2021 12:00 AM EST from Last 3 Months or Most Recently Relevant to Health Maintenance Results * Pap Smear (03/18/2021 12:00 AM EST) 03/18/2021 03/21/2021 8:4 8 AM EST Narrative SEE NARRATIVE - 03/23/2021 4:09 PM EST [address] [address] Washer Repairman: Rosalina Palmer MD PLANT TECHNICIAN Cytology Report FINAL DIAGNOSIS A. PAP SMEAR (SUREPATH) CE: SPECIMEN ADEQUACY: Satisfactory for evaluation; transformation zone absent/insufficient. INTERPRETATION: NEGATIVE FOR INTRAEPITHELIAL LESION OR MALIGNANCY. Electronically Signed Out By: MENG Urena(ASCP) The Pap test is a screening test primarily for squamous cancers and precursors and has associated false-negative and false-positive results. New technologies such as liquid-based preparations may decrease but will not eliminate all false-negative results. Regular sampling and follow-up of unexplained clinical signs and symptoms are recommended to minimize false negative results. PROCEDURES/ADDENDA HPV Testing (Requested) Ordered Date: 03/21/2021 A. PAP SMEAR (SUREPATH) CE: Human Papilloma Virus Test Negative for high-risk human papillomavirus types 16, 18, 45 and the Other high risk probe set (Includes 31, 33, 35, 39, 51, 52, 56, 58, 59, 66, 68) by PISTIS Consult Onclarity HR-HPV analysis. Clinical correlation is advised. This HPV test was performed at [facility], [address] [place] [address]. This test has been FDA approved for SurePath cervical cytology specimens. The accuracy and precision of this test for all other specimen sources has been verified in the Cytopathology Laboratory of the [facility] and has not been cleared or approved by the U.S. Food and Drug Administration. Clinical correlation is advised. CLINICAL HISTORY Date of Last Menstrual Period: Not Provided Menstrual History: Post Menopausal Other Clinical Conditions: Screening Pap SPECIMEN SOURCE A: PAP SMEAR (SUREPATH) CE Patient Name: RERE SPAULDING : 1965 (Age: 55) Sex: F Institution: [facility] Location: [facility] Date of Collection: 03/18/2021 Date of Reported: 03/23/2021 16:09 Results to: Keely Keller MD Keely Keller MD CYTOLOGY ORDERABLES Final Result SEE NARRATIVE from Last 3 Months or Most Recently Relevant to Health Maintenance Insurance [employer] PPO [employer] PPO [facility] [employer] PPO [facility] [employer] PPO [employer]SPORT [employer]PO [place] PPO [facility] [employer] PPO [facility] [employer] [facility] [employer] PPO Care Teams Computer Equipment Installer Relationship Specialty Start Date End Date Herbert Boyle MD [address] [place] [address] [place] [id number] PCP - General Internal Medicine 02/18/21 Additional Source Comments The information contained in this document represents components of the legal health record. It is not the complete legal health record.[facility]
--- OUTSIDE RECORDS SUMMARY | 2025-01-23 07:51 | XMS_ITS ---
Continuity of Care Document (CCD) Created on: January 23, 2025 Rere Spaulding External Reference #: [id number] : [id number] Sex: Female Author Organization [facility] Address [address] [place] [address] Phone [phone] Social History Type Date Description Comments Sex Female Sex Unknown Medications Active Medications SIG Qnty Indications Ordering Provider Date Bupropion Hydrochloride ER (SR)150mg Tablets ER 12HR Herbert Boyle M.D. Jantoven2.5mg Tablets Juana Boyle M.D. Sertraline [id number] Tablets Herbert Ramos M.D. Metoprolol [id number] Tablets Unknown [id number] Capsules Herbert Boyle M.D. Results Test Acquired Date Facility Test Result H/L Range N ote Albumin 01/30/2022 [facility] Albumin 4.7 GM/DL (3.4-4.8) Basic Metabolic Panel 01/30/2022 [facility] Glucose 97 mg/dL (70-99) 1 BUN 17 mg/dL (6-20) Creatinine 0.6 mg/dL (0.5-1.0) Sodium 142 mmol/L (133-145) Potassium 4.9 mmol/L (3.6-5.2) Chloride 105 mmol/L (98-107) Bicarbonate 27 mmol/L (22-29) Anion Gap 10 (4-17) Calcium 11.3 mg/dL High (8.6-10.5 ) Estimated GFR Creatinine 105 ML/MIN/1.7 3M2 2 Phosphorus 01/30/2022 [facility] Phosphorus 3.4 mg/dL (2.5-4.5) 25Oh Vitamin D 01/30/2022 [facility] 25Oh Vitamin D 27.5 NG/ML (20-50) PTH, Intact 01/30/2022 [facility] PTH, Intact 65 pg/mL [...]
--- NOTE | 2025-01-23 07:53 | A.OFFPC_ITS ---
Vital Signs 01/23/25 08:01 Height 5 ft 5 in Weight 177 lb BMI 29.5 BP 150/90 H Blood Pressure Location Rt brachial Position Sitting Respiration 17 Pulse 70 Pulse Source Pulse Oximeter Temp 97.9 F Temp Source Temporal Artery Scan Pulse Oximetry (%) 96 Oxygen Delivery Method Room Air Intake Visit Reasons: multiple complex health issues - Dr. Boyle Rag Room Supervisor Required: No Accompanied by: Self / Same As Patient Allergies No Known Allergies Allergy (Verified 01/23/25 07:54) Medication List - Last Reconciled 01/23/25 by Nirav Moncada MD aspirin 81 mg PO DAILY atropine 1% drps ophthalmic (eye) [b 12 PO] cholecalciferol (vitamin D3) 25 mcg PO DAILY difluprednate 0.05% drps ophthalmic-Right [fish oil PO] melatonin mg PO .qd PRN metoprolol tartrate orally 2 times a day; 25mg am; 50mg pm. warfarin 7.5 mg PO DAILY Tobacco use date assessed: 01/23/25 Dental Screening Dental Screen Date: 01/23/25 Did you have a dental visit in the last 12 months?: Yes Did you have a dental problem in the last 6 months where you did not have access to dental care?: No Was dental information given to patient?: Patient has dentist HPI HPI Comments History of Present Illness Details The patient is a 59-year-old female presenting with the management of multiple chronic conditions, including atrial fibrillation and hypertension. The patient has a complex cardiac history; she has a history of an abdominal aortic aneurysm that was surgically repaired and aortic valve stenosis, which led to valve replacement due to a bicuspid aortic valve. She also reports prior high blood pressure management. The patient was hospitalized recently in September for exacerbation of atrial fibrillation, where medication adjustments were made, including an increase in dosages of Alt[place] and metoprolol. She has been experiencing episodes where her heart rate increases from her usual rate of 65-66 bpm to 80-85 bpm, managing symptoms by monitoring her heart rate using a watch and resting when needed to prevent escalation. The patient also reports concerns with her vision, including retinal artery occlusion following her cardiac surgery, leading to a bleed, which required surgical intervention by her retina specialist due to severe scar tissue formation. She uses steroid drops and has had oral steroids to manage her condition. She also developed a severe cataract and has scheduled surgery on March 05. The cataract has significantly impacted her vision, describing it as looking through a sheer curtain. Additionally, she notes significant limitations due to these eye issues, as they prevent her from working and driving at night. The patient also mentions a family history of stage 4 breast cancer in her mother and type 2 diabetes and heart disease in her father, with her father also having had a stroke. She does not have a personal cancer history but discussed feeling anxious and occasionally overwhelmed, which influences her mood. This includes managing her mother's hospice care and her financial concerns. She reports prior experience with Zoloft, but it was discontinued earlier. She is cognizant of needing regular health screenings, like mammograms which she plans to initiate. Medical History: - Atrial Fibrillation - Essential Hypertension - Abdominal Aortic Aneurysm (repaired) - Aortic Valve Stenosis (valve replaced) - Retinal Artery Occlusion - Cataract - Hypercalcemia (Familial) - Psychiatric symptoms of depression and anxiety Surgical History: - Abdominal Aortic Aneurysm Repair - Aortic Valve Replacement - Retina surgery for Retinal Artery Occl usion - Upcoming cataract surgery Medications: - Aspirin 81 mg QD for AAA surgery - Atropine 1% drops for eye management - Ophthalmic Diflupendate 0.05 for eye m anagement - Melatonin as needed for sleep - Metoprolol tartrate 25 mg AM and 50 mg PM for AFib - Warfarin 7.5 mg QD managed by [facility] for AFib Family History: - Mother with Stage 4 breast cancer on h ospice - Father with Type 2 Diabetes, leukemia, and heart disease leading to stroke - Familial Hypercalcemia involving patie nt, mother, and daughter Diagnostic Results: - Previous blood work noted hypercalcemi a - Assessment needed for parathyroid horm one levels Social: - Resides in [place] with - Previous social alcohol consumption st opped pre-AFib diagnosis - Occasional past tobacco use; social in nature, not habitual - Providing care for her 88-year-old jazmyn diamond mother, increases stress levels - Experiences limited mobility and inabi lity to work due to eye issues [facility] Medical History (Updated 01/23/25 @ 08:30 by Nirav Moncada MD) Retinal artery occlusion Depression with anxiety Family history of malignant neoplasm of breast Hypercalcemia Essential hypertension Nonrheumatic aortic (valve) stenosis Bicuspid aortic valve Surgical History (Updated 01/23/25 @ 08:28 by Nirav Moncada MD) History of colonoscopy (~02/19/19) History of aortic valve replacement (~06/30/20) History of aortic aneurysm repair (~06/30/20) History of D&C History of left breast biopsy Family History Father Cardiovascular disease Stroke History of coronary artery bypass graft Mother Cardiovascular disease Heart valve replaced Social History Housing: House Patient Tobacco Use Status: Former Tobacco user Years Smoked: 2 years-quit 5 years ago e-Cigarette/Vaping Use: Never Used service: No Current occupational status: unemployed Questionnaire PHQ-9 Over the last 2 weeks, how often have you been bothered by any of the following problems? 1. Little interest or pleasure in doing things: several days 2. Feeling down, depressed, or hopeless: several days 3. Trouble falling or staying asleep, or sleeping too much: more than half the days 4. Feeling tired or having little energy: more than half the days 5. Poor appetite or overeating: not at all 6. Feeling bad about yourself - or that you are a failure or have let yourself or your family down: not at all 7. Trouble concentrating on things, such as reading the newspaper or watching television: nearly every day 8. Moving or speaking so slowly that other people could have noticed. Or the opposite - being so fidgety or restless that you have been moving around a lot more than usual: not at all 9. Thoughts that you would be better off or of hurting yourself in some w ay: several days Total score: 10 Depression Screening Interpretation: Positive Depression Screening Done: Yes 19894 - PHQ-9 Billing: Yes Source: Developed by Drs. Anthony Baltazar, Mara Miller, Roberto Colbert and colleagues, with an educational bartolo from [employer]. Thrive Questionnaire Date Thrive assessed: 01/23/25 I am a: Patient What is your living situation today?: I have a steady place to live Within the past 12 months, did the food you bought not last and you didn't have the money to get more?: Never true Within the past 12 months, did you worry whether your food would run out before you got money to buy more?: Never true Do you have trouble paying for medicines?: No Do you have trouble getting transportation to medical appointments?: No Do you have trouble paying your heating and electricity bill?: No Do you have trouble taking care of your child, family member or friend?: No Do you have trouble with day-to-day activities such as bathing, preparing meals, shopping, managing finances, etc.?: No Are you currently unemployed and looking for a job?: No Are you interested in more education?: No THRIVE Score: 0 AUDIT C Alcohol Use Questionnaire (AUDIT-C) 1. How often do you have a drink containing alcohol?: Never 3. How often do you have six or more drinks on one occasion?: Never Total Score: 0 Score Reviewed/Action Taken: Yes RAMON-7 AMB Questionnaire RAMON-7 Date RAMON - 7 assessed: 01/23/25 Feeling nervous, anxious, or on edge: 1 = Several days Not being able to stop or control worryin = More than half the days Worrying too much about different things: 1 = Several days Trouble relaxin = Several days Being so restless that it is hard to sit still: 0 = Not at all Becoming easily annoyed or irritable: 0 = Not at all Feeling afraid as if something awful might happen: 2 = More than half the days Total RAMON-7 score (0-4 normal; 5-9 mild; 10-14 moderate; 15-21 severe): 7 Source: Developed by Drs. Anthony Baltazar, Mara Miller, Roberto Colbert and colleagues, with an educational bartolo from [employer]. RAMON-7 Assessment Billing RAMON-7 Assessment Tool: RAMON-7 Assessment 30211 Review of Systems Const Details: - Cardiovascular: Reports palpitations; increased heart rate episodes - Vision: Reports difficulty with vision, loss due to cataract and post-surgical issues - Psychological: Reports variability in mood, stress from caregiving, concerns about health and finances - General: Reports fatigue and variable energy levels, issues with appetite control All systems reviewed & are unremarkable except as reviewed in HPI and above Physical exam (Primary Care) Tobacco/Smoking Status: Tobacco use Status Tobacco use date assessed 01/23/25 01/23/25 07:56 Patient Tobacco Use Status Never used Tobacco 01/23/25 07:56 Depression Screening Interpretation: Positive Const Other: General: Alert and oriented, Well nourished, No acute distress. Eye: Pupils are equal, round and reactive to light, Intact accommodation, Extraocular movements are intact, Normal conjunctiva, Vision impaired due to cataract, Retinal artery occlusion present. HENT: Normocephalic, Atraumatic, Tympanic membranes are clear, Normal hearing, Oral mucosa is moist, No pharyngeal erythema, Ear canals patent. Respiratory: Lungs CTA bilaterally, No wheeze, Respirations are non-labored. Cardiovascular: Irregular rhythm due to AFib, S1 auscultated, S2 auscultated, No murmur, Good pulses equal in all extremities, Normal peripheral perfusion, No edema. Gastrointestinal: Soft, Non-tender, Non-distended, Normal bowel sounds, No organomegaly. Musculoskeletal: Normal range of motion, Normal strength, No tenderness, No swelling, No deformity, Normal gait. Integumentary: Warm, Dry, [place], Intact, [place] on hands noted, No significant changes in size or shape. Neurologic: Alert, Oriented, Normal sensory, Normal motor function, No focal defects, Cranial Nerves II-XII are grossly intact, Normal deep tendon reflexes. Psychiatric: Cooperative, Mood affected by vision impairment, Positive for depression and anxiety, Normal judgment. Coding Level of Care Code New Pt Level 4 (20712) New Pt Prev Care 40-64y(34001) Diagnoses Essential hypertension I10 Bicuspid aortic valve Q23.1 Status post mechanical aortic valve replacement Z95.2 PAF (paroxysmal atrial fibrillation) I48.0 Status post ascending aortic aneurysm repair Z98.890; Z86.79 Hypercalcemia E83.52 Family history of malignant neoplasm of breast Z80.3 Depression with anxiety F41.8 Retinal artery occlusion H34.9 Additional Codes PHQ-9 - 59229 - PHQ-9 Billing: Yes ([id number]) RAMON-7 Assessment Billing - RAMON-7 Assessment Tool: RAMON-7 Assessment 75354 ([id number]) Assessment & Plan Assessment & Plan (1) Essential hypertension: Comment: - Continued observation, with emphasis on the importance of taking blood pressure medications regularly Code(s): I10 - Essential (primary) hypertension Category: Medical (2) Bicuspid aortic valve: Comment: S/p [place] valve replacement with INR Goal of 1.5 to 2 (Followed by [facility]) & Cardiology Code(s): Q23.1 - Congenital insufficiency of aortic valve Category: Medical (3) Status post mechanical aortic valve replacement: Comment: S/p [place] valve replacement with INR Goal of 1.5 to 2 (Followed by [facility]) & Cardiology Code(s): Z95.2 - Presence of prosthetic heart valve Category: Surgical (4) PAF (paroxysmal atrial fibrillation): Comment: - Metoprolol management continued for rate control - Warfarin dosing maintained with INR goal of 1.5-2.0 - Discussed signs to monitor and when to seek hospital care (heart rate over 110 bpm) Code(s): I48.0 - Paroxysmal atrial fibrillation Category: Medical (5) Status post ascending aortic aneurysm repair: Comment: - S/p Repair at [facility] Code(s): Z98.890 - Other specified postprocedural states; Z86.79 - Personal history of other diseases of the circulatory system Category: Surgical (6) Hypercalcemia: Comment: Labs suggestive of hypercalcemia with elevated calcium over 11 are multiple blood work. Also has a simultaneous increase in PTH. We will obtain lab work again and if elevated we will consider referral to endocrinology for further recommendations. Code(s): E83.52 - Hypercalcemia Category: Medical (7) Family history of malignant neoplasm of breast: Comment: - Breast Cancer in mother, will proceed with breast cancer screening Code(s): Z80.3 - Family history of malignant neoplasm of breast Category: Medical (8) Depression with anxiety: Comment: - Discussed restarting Zoloft with awareness of previous experiences however given Warfarin use, will start on Mirtazapine and monitor symptoms. - Consider non-pharmacologic stress response techniques Code(s): F41.8 - Other specified anxiety disorders Category: Medical (9) Retinal artery occlusion: Comment: - Continued ophthalmologic management with steroid eye drops - Surgical follow-up for cataract scheduled on March 05 - Follows with Dr. Reed Code(s): H34.9 - Unspecified retinal vascular occlusion Category: Medical Plan: Health Maintenance: - Discussed scheduling mammogram - Emphasized regular cardiovascular exercise - Mental health support through pharmacotherapy (Zoloft) considerations discussed Patient was informed and verbally consented to the use of an ambient scribe for clinic note documentation during this visit. Plan During our discussion, I emphasized the importance of regular monitoring and management of her atrial fibrillation and hypertension, including the impact of lifestyle choices and compliance with her medication regimen. We covered surgical follow-up necessary for her cataract and addressed ongoing concerns related to her retinal artery occlusion. I highlighted the significance of her psychiatric symptoms of depression and anxiety, offering Zoloft as a treatment option extendedly, considering prior insufficient response, noting added stressors like caregiving and financial concerns. I assured her that support remains available, and we can explore adjustments as needed. Orders: Orders MM tomosynthesis screening BI Today Z80.3 - Family history of malignant neoplasm of breast Comprehensive Met. Panel Today E83.52 - Hypercalcemia Lipid Panel Today E83.52 - Hypercalcemia PTH Intact Intraoperative Today E83.52 - Hypercalcemia Referrals DEPUTY SHERIFF K9 HANDLER Referral Z80.3 - Family history of malignant neoplasm of breast Medications: New mirtazapine 7.5 mg PO DAILY 90 tabs 0RF Patient Instructions: - Take all medications as prescribed and monitor heart rate regularly. - Be aware of symptoms like heart rate exceeding 110 bpm and seek care immediately if they occur. - Prepare for and attend the scheduled cataract surgery on March 05. - Schedule a mammogram as planned. - Begin Zoloft as discussed, and allow several weeks to gauge effectiveness. - Monitor blood pressure routinely and ensure regular medication intake. - Engage in stress-reducing activities as suggested, and monitor mood changes. - Reach out for any new concerns or worsening symptoms.
[2025-01-23 08:01] VITALS: BP 150/90; PULSE 70; RESP 17; TEMP 36.6; O2SAT 96; BMI 29.5
== END 2025-01-23 08:31 | disposition home or self-care (01) ==
LOC: HO.HMCHD 07:49
PROVIDERS: PCP Student in an Organized Health Care Education/Training Program; Visit Provider Student in an Organized Health Care Education/Training Program
DX: Z00.00 Encounter for general adult medical examination without abnormal findings (principal); I10 Essential (primary) hypertension; I48.0 Paroxysmal atrial fibrillation; Q23.1 Congenital insufficiency of aortic valve; Z95.2 Presence of prosthetic heart valve; Z98.890 Other specified postprocedural states; Z86.79 Personal history of other diseases of the circulatory system; E83.52 Hypercalcemia; Z80.3 Family history of malignant neoplasm of breast; F41.8 Other specified anxiety disorders; H34.9 Unspecified retinal vascular occlusion

== ENCOUNTER → 2025-01-23 07:48 | Outpatient (BNVA) | payer BC, SELFPAY | PROVIDERS: PCP Family Medicine; Visit Provider Student in an Organized Health Care Education/Training Program | DX: I10 Essential (primary) hypertension (principal); I48.0 Paroxysmal atrial fibrillation; E83.52 Hypercalcemia; F41.8 Other specified anxiety disorders; H34.9 Unspecified retinal vascular occlusion; Q23.81 Bicuspid aortic valve; Z86.79 Personal history of other diseases of the circulatory system; Z95.2 Presence of prosthetic heart valve; Z79.01 Long term (current) use of anticoagulants; Z79.82 Long term (current) use of aspirin; Z79.899 Other long term (current) drug therapy; Z80.3 Family history of malignant neoplasm of breast; Z82.49 Family history of ischemic heart disease and other diseases of the circulatory system; Z82.3 Family history of stroke; Z13.31 Encounter for screening for depression; Z13.39 Encounter for screening examination for other mental health and behavioral disorders | CPT/HCPCS: 96127 ==

== ENCOUNTER 2025-01-29 12:31 | Outpatient (AMB) | payer BC, SELFPAY ==
[2025-01-29 12:41] VITALS: BP 126/68; PULSE 68; BMI 29.7
--- NOTE | 2025-01-29 12:41 | A.OFFVIS_ITS ---
Vital Signs 01/29/25 12:41 Height 5 ft 5 in Weight 178 lb 9.191 oz BMI 29.7 BP 126/68 Blood Pressure Location Lt brachial Position Sitting Pulse 68 Pulse Source Pulse Oximeter Intake Visit Reasons: f/up s/p 7 day Allergies No Known Allergies Allergy (Verified 01/23/25 07:54) Medication List - Last Reconciled 01/29/25 by Henry Gomez MD aspirin 81 mg PO DAILY atropine 1% drps ophthalmic (eye) [b 12 PO] cholecalciferol (vitamin D3) 25 mcg PO DAILY difluprednate 0.05% drps ophthalmic-Right [fish oil PO] melatonin mg PO .qd PRN metoprolol tartrate 25 mg PO ONCE metoprolol tartrate 50 mg PO BEDTIME mirtazapine 7.5 mg PO DAILY warfarin 7.5 mg PO DAILY HPI Comments Details: Rere returns for follow-up. She underwent mechanical aortic valve replacement as well as aortic aneurysm repair. History of bicuspid valve. Few months back, had palpitations and came to the ER and found to be in atrial fibrillation rapid rate. Received IV beta-blockers/diltiazem and converted to sinus rhythm. Then beta-braeden dose was increased. Otherwise, she has had palpitations off and on but Holter itself is unremarkable and not showing any recurring atrial fibrillation. She is also having ongoing vision issues and scheduled for seizure through ophthalmology. ON LICENSE OF [facility] Medical History (Updated 01/29/25 @ 13:39 by Henry Gomez MD) Retinal artery occlusion Depression with anxiety Family history of malignant neoplasm of breast Hypercalcemia Essential hypertension Nonrheumatic aortic (valve) stenosis Bicuspid aortic valve Surgical History (Updated 01/23/25 @ 08:28 by Nirav Moncada MD) History of colonoscopy (~02/19/19) History of aortic valve replacement (~06/30/20) History of aortic aneurysm repair (~06/30/20) History of D&C History of left breast biopsy Family History Father Cardiovascular disease Stroke History of coronary artery bypass graft Mother Cardiovascular disease Heart valve replaced Social History Housing: House Patient Tobacco Use Status: Former Tobacco user Years Smoked: 2 years-quit 5 years ago e-Cigarette/Vaping Use: Never Used service: No Current occupational status: unemployed Review of Systems Const Denies weakness ENT Denies dizziness Card Denies chest pain, Denies chest pain with activity, Denies syncope, Denies rapid heart rate, Denies pedal edema, Denies edema, Denies leg edema, Denies lightheadedness, Denies palpitations, Denies dyspnea, Denies dyspnea on exertion and Denies orthopnea Resp Denies cough, Denies dyspnea and Denies dyspnea on exertion GI Denies hematochezia and Denies change in stool character Musc Denies abnormal gait, Denies muscle cramps, Denies muscle weakness, Denies numbness, Denies radiating pain into limb and Denies tingling Neuro Denies abnormal gait, Denies dizziness, Denies syncope, Denies numbness, Denies tingling and Denies weakness Endo Denies palpitations Physical Exam Vital Signs: Last Vital Signs Pulse 68 01/29/25 12:41 BP 126/68 01/29/25 12:41 BMI result Body Mass Index 29.7 Const General: cooperative, comfortable and no acute distress Orientation/consciousness: patient oriented x3 HEENT Other: Unremarkable Neck Neck: Yes normal visual inspection Chest Chest palpation & inspection: normal inspection of the chest Resp Auscultation: clear to auscultation bilaterally and no crackles Cardio Jugular venous distension: no JVD Palpation: normal PMI Heart sounds: no gallops, Murmur heart sound present systolic II/ and at the right sternal border, no rubs and Other heart sounds present (Normal prosthetic heart sounds) GI Palpation (GI): Soft to palpation Back/Spine/Pelvis Other: unremarkable Skin General skin exam: no rashes or lesions noted Neuro General: patient oriented x3 Extrem General: Yes no clubbing, cyanosis or edema Psych Mental Status: mental status grossly normal Assessment & Plan Assessment & Plan (1) Status post mechanical aortic valve replacement: Comment: S/p [place] valve replacement with INR Goal of 1.5 to 2 (Followed by [facility]) & Cardiology Code(s): Z95.2 - Presence of prosthetic heart valve Category: Surgical Plan: Continue Aspirin and Coumadin. Target INR 1.5-2. Infective endocarditis prophylaxis per protocol. In the echocardiogram from 04/2024, normally functioning mechanical aortic valve. (2) Status post ascending aortic aneurysm repair: Comment: - S/p Repair at [facility] Code(s): Z98.890 - Other specified postprocedural states; Z86.79 - Personal history of other diseases of the circulatory system Category: Surgical Plan: Stable per CTA 02/2024. (3) PAF (paroxysmal atrial fibrillation): Code(s): I48.0 - Paroxysmal atrial fibrillation Category: Medical Plan: Recent ER presentation with atrial fibrillation/rapid rate. Now in sinus rhythm. Holter is not showing any recurring atrial fibrillation. Continue beta-blockers. She is already on anticoagulation. If she indeed gets recurrent atrial fibrillation, we may have to increase the target INR to 2-3. (4) Essential hypertension: Comment: - Continued observation, with emphasis on the importance of taking blood pressure medications regularly Code(s): I10 - Essential (primary) hypertension Category: Medical Plan: Stable. No changes. (5) Retinal hemorrhage: Code(s): H35.60 - Retinal hemorrhage, unspecified eye Category: Medical Plan: Per prior ophthalmology notes, described to have retinal hemorrhage, vitreous hemorrhage and branch retinal artery occlusion. We will need to get some notes more recent. Orders: Orders CA echo transthoracic complete 6 Months Henry Gomez MD Z95.2 - Presence of prosthetic heart valve Medications: Changed From metoprolol tartrate 25 mg PO BID 90 days 180 tabs 0RF I10 - Essential (primary) hypertension To metoprolol tartrate 25 mg PO ONCE I10 - Essential (primary) hypertension Nirav Moncada MD Coding Level of Care Code Est Pt Level 4 (69624) Complex EM visit Add On G2211 Diagnoses Status post mechanical aortic valve replacement Z95.2 Status post ascending aortic aneurysm repair Z98.890; Z86.79 PAF (paroxysmal atrial fibrillation) I48.0 Essential hypertension I10 Retinal hemorrhage H35.60
--- OUTSIDE RECORDS SUMMARY | 2025-01-29 17:20 | XMS_ITS | Patient Health Record ---
[facility] keke SingletaryReginald Address [address] [place] [address] Care Team Providers Care Machine Adjuster Leader Case Trim Name Role Phone Herbert Boyle MD Primary Care Provider Unavailab Bean Javier Unavailable [phone] Reason For Referral No Information Medications Medication SIG (Take, Route, Frequency, Duration) Notes Start Date End Date Status Zoloft 100 MG 1 tablet Orally Once a day; Duration: 30 day(s) Active Problems Problem Type SNOMED Code ICD Code Onset Dates Problem Status W/U Status Risk Notes Problem Disorder of joint of ankle and/or foot (524762856) Arthritis - Degenerative (719.97) Active confirmed Problem Neuralgia - Neuritis (729.2) Active confirmed Problem Acquired deformity of joint of big toe (disorder) (242340643) Hallux Limitus (735.8) Active confirmed Problem Congenital pes planus (33500723) Flat Foot, Congenital (754.61) Active confirmed Problem Pain in limb (08050351) Pain in Limb (729.5) Active confirmed Plan Of Treatment Pending Test Test Name Order Date 78774, J0702- Neuroma/Injection 09/27/19 12 Insurance Providers Payer Name Payer Address Payer Phone Subscriber Number Group Number Insured Name Patient Relationship to Insured Coverage Start Date Coverage End Date Cigna [address] [place] [id number] [phone] [id number] Rehan Spaulding Spouse - patient is the spouse of the insured Medical (General) History Medical History History ICD Code cataracts menieres disease Surgical History Surgery Date(Month/Year) D&C
--- OUTSIDE RECORDS SUMMARY | 2025-01-29 17:20 | XMS_ITS | Clinical Summary ---
Author Organization [facility] Address [address] [place] [address] Phone Care Team Providers Care Judicial Law Clerk Name Role Phone Herbert Boyle MD Primary Care Provider [phone] Allergies No known active allergies Medications warfarin [...] SEE NARRATIVE - 03/23/2021 4:09 PM EST [address] [address] Experimental [employer]board [employer] Mechanic: Rosalina Palmer MD CLINICAL SPECIALTY REP Cytology Report FINAL DIAGNOSIS A. PAP SMEAR [...] 52, 56, 58, 59, 66, 68) by [employer] Onclarity HR-HPV analysis. Clinical correlation is advised. This HPV test was performed at [facility], [address] [place] [address]. This test has been FDA approved for SurePath cervical cytology specimens. The accuracy and precision of this test for all other specimen sources has been verified in the Cytopathology Laboratory of the [facility] and has not been cleared or approved by the U.S. Food and Drug Administration. Clinical correlation is advised. CLINICAL HISTORY Date of Last Menstrual Period: Not Provided Menstrual History: Post Menopausal Other Clinical Conditions: Screening Pap SPECIMEN SOURCE A: PAP SMEAR (SUREPATH) CE Patient Name: RERE SPAULDING : 1965 (Age: 55) Sex: F Institution: [facility] Location: [facility] Date of Collection: 03/18/2021 Date of Reported: 03/23/2021 16:09 Results to: Keely Keller MD Keely Keller MD CYTOLOGY ORDERABLES Final Result SEE NARRATIVE from Last 3 Months or Most Recently Relevant to Health Maintenance Insurance [email or web address] PPO [email or web address] PPO [facility] [employer] PASSPORT PPO [facility] [employer]ORT PPO [employer] PASSPORT PPO [employer]SPORT PPO [facility] [employer] PASSPORT PPO [facility] [employer] PASSPORT PPO Care Teams Judicial Law Clerk Relationship Specialty Start Date End Date Herbert Boyle MD [address] [place] [address] [place] [address] PCP - General Internal Medicine 02/18/21 Additional Source Comments The information contained in this document represents components of the legal health record. It is not the complete legal health record.[facility]
--- OUTSIDE RECORDS SUMMARY | 2025-01-29 17:20 | XMS_ITS | Continuity of Care Document ---
Author Organization [facility] Address [address] [place] [address] Phone [phone] Social History Type Date Description Comments Sex Female Sex Unknown Medications Active Medications SIG Qnty Indications Ordering Provider Date Bupropion Hydrochloride ER (SR)150mg Tablets ER 12HR Herbert Boyle M.D. Jantoven2.5mg Tablets Juana Boyle M.D. Sertraline [id number] Tablets Herbert Ramos M.D. Metoprolol [id number] Tablets Unknown [id number] Capsules Herbert Boyle M.D. Results Test Acquired Date Facility Test Result H/L Range N ote Albumin 01/30/2022 [facility] Albumin 4.7 GM/DL (3.4-4.8) Basic Metabolic Panel 01/30/2022 [facility] Glucose 97 mg/dL (70-99) 1 BUN 17 mg/dL (6-20) Creatinine 0.6 mg/dL (0.5-1.0) Sodium 142 mmol/L (133-145) Potassium 4.9 mmol/L (3.6-5.2) Chloride 105 mmol/L (98-107) Bicarbonate 27 mmol/L (22-29) Anion Gap 10 (4-17) Calcium 11.3 mg/dL High (8.6-10.5 ) Estimated GFR Creatinine 105 ML/MIN/1.7 3M2 2 Phosphorus 01/30/2022 [facility] Phosphorus 3.4 mg/dL (2.5-4.5) 25Oh Vitamin D 01/30/2022 [facility] 25Oh Vitamin D 27.5 NG/ML (20-50) PTH, Intact 01/30/2022 [facility] PTH, Intact 65 pg/mL [...]
--- OUTSIDE RECORDS SUMMARY | 2025-01-29 17:20 | XMS_ITS | Patient Health Record ---
Author Organization [facility] Address [address] [place] [address] Care Team Providers Care Middle School Tutor Name Role Phone [place] (RETIRED) Herbert LE Primary Care Provider Unavailable Ranulfo Blair Jr Unavailable Allergies Allergen (clinical drug ingredient) Drug/Non Drug Allergy documented on EMR Reaction Allergy Type Onset Date Status GARLIC,COFFEE CHOCOLATE (uncoded) Unknown Allergy Active Reason For Referral No Information Medications Medication SIG (Take, Route, Fr equency, Duration) Notes Start Date End Date Status Vitamin D Active ibuprofen PRN Active Multivitamin Adults Active Vitamin B Complex Ac tive Immunizations Vaccine Route Administration Date Status Comme nts Influenza Unknown 10/24/2018 Refused Social History Tobacco Use: Social History Observation Description Date Details (start date - stop date) Former Smoker NA - NA Tobacco Use/Smoking Question Answer Notes Patient is a former smoker How long has it been since you last smoked? 1-5 years Alcohol Screen Question Answer Notes Did you have a drink contain ing alcohol in the past year? Yes How often did you have a dri nk containing alcohol in the past year? 2 to 4 times a month (2 points) How many drinks did you have on a typical day when you were drinking in the past year? 3 or 4 drinks (1 point) How often did you have 6 or more drinks on one occasion in the past year? Never (0 point) Points 3 Interpretation Positive Problems Problem Type SNOMED Code ICD Code Onset Dates Problem Status W/U Status Risk Notes Problem 681113267 Colon cancer screening (Z12.11) Active confirmed Problem 91898135 Irritable bowel syndrome with both constipation and diarrhea (K58.2) Active confirmed Plan Of Treatment Future Test Test Name Order Date COLONOSCOPY 10/24/2018 Insurance Providers Payer Name Payer Address Payer Phone Subscriber Number Group Number Insured Name Patient Relationship to Insured Coverage Start Date Coverage End Date [facility] [address] [place], [place] [id number] VASHTI TORRES Self - patient is the insured Medical (General) History Medical History History ICD Code Denies [place],DM,CVA,Lung disease,renal dise ase Surgical History Surgery Date(Month/Year) dilatation and curettage 1992
== END 2025-01-29 13:08 | disposition home or self-care (01) ==
LOC: HO.HCS 12:32
PROVIDERS: PCP Family Medicine; Visit Provider Internal Medicine
DX: Z95.2 Presence of prosthetic heart valve (principal); Z98.890 Other specified postprocedural states; Z86.79 Personal history of other diseases of the circulatory system; I48.0 Paroxysmal atrial fibrillation; I10 Essential (primary) hypertension; H35.60 Retinal hemorrhage, unspecified eye
CPT/HCPCS: 99214

== ENCOUNTER 2025-02-11 08:43 | Outpatient (REF) | payer BC, SELFPAY ==
[2025-02-11 11:05] LABS: Alanine Aminotransferase 18 U/L (0-31); Albumin Level 4.5 g/dL (3.5-5.0); Alkaline Phosphatase 88 U/L (39-117); Anion Gap 9 (12-20); Aspartate Amino Transferase 21 U/L (5-31); Blood Urea Nitrogen 17 mg/dL (9-16); Calcium 11.0 mg/dL (8.4-10.2); Carbon Dioxide 26 mmol/L (22-29); Chloride 112 mmol/L (96-108); Cholesterol 332 mg/dL (<200); Estimated Glomerular Filt Rate > 60; HDL Cholesterol 57 mg/dL (>40); Potassium 4.5 mmol/L (3.3-5.1); Sodium 142 mmol/L (135-145); Total Protein 7.1 g/dL (6.5-8.0); Triglycerides 135 mg/dL (<150)
[2025-02-11 11:30] LABS: Parathyroid Hormone Intact 98.6 pg/mL (8.7-77.1)
== END 2025-02-11 08:44 | disposition home or self-care (01) ==
LOC: HO.HMGCLDS 08:43
PROVIDERS: PCP Student in an Organized Health Care Education/Training Program; Visit Provider Student in an Organized Health Care Education/Training Program
DX: Z13.6 Encounter for screening for cardiovascular disorders (principal); E83.52 Hypercalcemia
CPT/HCPCS: 36415; 80053; 80061; 83970

== ENCOUNTER 2025-02-18 13:57 | Outpatient (AMB) | payer BC, SELFPAY ==
--- NOTE | 2025-02-18 10:48 | MHC.PC.OV ---
Vital Signs 02/18/25 14:16 Height 5 ft 5 in Weight 178 lb 2 oz BMI 29.6 BP 122/80 Blood Pressure Location Lt brachial Position Sitting Pulse 59 Pulse Source Pulse Oximeter Temp 97.4 F Temp Source Temporal Artery Scan Pulse Oximetry (%) 98 Oxygen Delivery Method Room Air Intake Visit Reasons: Pre-Op Pharm Tech Required: No Accompanied by: Self / Same As Patient Allergies No Known Allergies Allergy (Verified 02/18/25 10:49) Medication List - Last Reconciled 02/23/25 by ADE Brady aspirin 81 mg PO DAILY atropine 1% drps ophthalmic (eye) [b 12 PO] cholecalciferol (vitamin D3) 2,000 units PO DAILY difluprednate 0.05% drps ophthalmic-Right [fish oil PO] melatonin mg PO .qd PRN metoprolol tartrate 50 mg PO BID warfarin 7.5 mg (3 x 2.5 mg) PO DAILY 90 days Tobacco use date assessed: 02/18/25 Dental Screening Dental Screen Date: 02/18/25 Did you have a dental visit in the last 12 months?: Yes Did you have a dental problem in the last 6 months where you did not have access to dental care?: No HPI HPI Comments History of Present Illness Details The patient is a 59-year-old female with MDD, HTN, paroxysmal A fib and mechanical aortic valve on warfarin seen in coverage presenting for pre-operative evaluation for cataract surgery in the right eye on 03/05. She is scheduled for surgery on March 05, with Dr. Fide Resendiz from [facility]. Patient has had multiple surgical procedures in the past and denies issues with bleeding or anesthesia. She had routine labs within the past 6 months that were essentially normal except for elevated cholesterol. She is on Metoprolol. Her BP today was 122/80. She was last seen by her large animal husbandry technician on 01/29/25 with 6 month follow up. Current guidelines allow for the continuation of warfarin during cataract surgery, which is considered a low-risk procedure. Patient has follow up with PCP in April. . [facility] Medical History (Updated 02/23/25 @ 07:03 by ADE Brady) Bicuspid aortic valve Cataract Depression with anxiety Essential hypertension Family history of malignant neoplasm of breast Hypercalcemia Nonrheumatic aortic (valve) stenosis Preop examination Retinal artery occlusion Surgical History History of aortic aneurysm repair (~06/30/20) History of aortic valve replacement (~06/30/20) History of colonoscopy (~02/19/19) History of D&C History of left breast biopsy Family History (Updated 02/18/25 @ 14:22 by Molly Franklin MA) Father Cardiovascular disease Stroke History of coronary artery bypass graft Mother Cardiovascular disease Heart valve replaced Maternal Grandmother Substance abuse Maternal Grandmother Mental health disorder Paternal Uncle Substance abuse Paternal Uncle Mental health disorder Social History Housing: House Patient Tobacco Use Status: Former Tobacco user Years Smoked: 2 years-quit 5 years ago e-Cigarette/Vaping Use: Former Use service: No Current occupational status: employed Cognitive needs: No Hearing needs: No Vision needs: Yes (rx glasses) Questionnaire PHQ-9 Over the last 2 weeks, how often have you been bothered by any of the following problems? 1. Little interest or pleasure in doing things: not at all 2. Feeling down, depressed, or hopeless: nearly every day 3. Trouble falling or staying asleep, or sleeping too much: not at all 4. Feeling tired or having little energy: not at all 5. Poor appetite or overeating: several days 6. Feeling bad about yourself - or that you are a failure or have let yourself or your family down: not at all 7. Trouble concentrating on things, such as reading the newspaper or watching television: not at all 8. Moving or speaking so slowly that other people could have noticed. Or the opposite - being so fidgety or restless that you have been moving around a lot more than usual: not at all 9. Thoughts that you would be better off or of hurting yourself in some way: not at all Total score: 4 Depression Screening Interpretation: Negative Depression Screening Done: Yes Source: Developed by Drs. Anthony Baltazar, Mara Miller, Roberto Colbert and colleagues, with an educational bartolo from [email or web address]. Thrive Questionnaire Date Thrive assessed: 02/18/25 I am a: Patient Within the past 12 months, did the food you bought not last and you didn't have the money to get more?: Never true Within the past 12 months, did you worry whether your food would run out before you got money to buy more?: Never true Do you have trouble paying for medicines?: No Do you have trouble getting transportation to medical appointments?: No Do you have trouble paying your heating and electricity bill?: No Do you have trouble taking care of your child, family member or friend?: No Do you have trouble with day-to-day activities such as bathing, preparing meals, shopping, managing finances, etc.?: No Are you currently unemployed and looking for a job?: No Are you interested in more education?: No THRIVE Score: 0 AUDIT C Alcohol Use Questionnaire (AUDIT-C) 1. How often do you have a drink containing alcohol?: Never 3. How often do you have six or more drinks on one occasion?: Never Total Score: 0 RAMON-7 AMB Questionnaire RAMON-7 Date RAMON - 7 assessed: 02/18/25 Feeling nervous, anxious, or on edge: 0 = Not at all Not being able to stop or control worryin = Not at all Worrying too much about different things: 0 = Not at all Trouble relaxin = Not at all Being so restless that it is hard to sit still: 0 = Not at all Becoming easily annoyed or irritable: 0 = Not at all Feeling afraid as if something awful might happen: 0 = Not at all Total RAMON-7 score (0-4 normal; 5-9 mild; 10-14 moderate; 15-21 severe): 0 Source: Developed by Drs. Anthony Baltazar, Mara Miller, Roberto Colbert and colleagues, with an educational bartolo from [email or web address]. Review of Systems Const Details: CONSTITUTIONAL No Chills No Fever No Weight loss No fatigue No generalized weakness SKIN No itching No skin lesions EYES No change in visual acuity No eye pain No red eye HEAD AND NECK No dizziness No headache No neck pain EAR/NOSE/MOUTH/THROAT No earache No sinus pain No congestion No hoarseness No sore throat RESPIRATORY No cough No shortness of breath No wheezing CARDIOVASCULAR No chest pain No dyspnea No palpitations No peripheral edema No Syncope GASTROINTESTINAL Symptoms of IBS diet controlled No constipation No diarrhea No heartburn No loss of appetite No nausea No vomiting GENITOURINARY No dysuria No hematuria No urinary frequency No urinary urgency ENDOCRINE No cold intolerance No excessive hunger No excessive thirst No change in hair texture MUSCULOSKELETAL No back pain No joint pain No swelling No myalgias IMMUNOLOGICAL/ALLERGIC No congestion No itchy eyes No itchy nose No rhinitis No watery eyes HEMATOLOGIC No bleeding tendencies No bruising No fatigue LYMPHATIC No swollen lymph nodes NEUROLOGICAL No memory loss No paresthesias No focal weakness PSYCHIATRIC No anxiety Depression in partial remission No sleeping problems No substance abuse No suicidal ideation Physical exam (Primary Care) Vital Signs: Last Vital Signs Temp 97.4 F 02/18/25 14:16 Pulse 59 02/18/25 14:16 BP 122/80 02/18/25 14:16 Pulse Ox 98 02/18/25 14:16 Oxygen Delivery Method Room Air 02/18/25 14:16 BMI result Body Mass Index 29.6 GENERAL Well Developed, Overweight, In no acute distress HEENT Head- Normocephalic, atraumatic Eyes- PERRLA, EOMI, Conjuctiva-WNL, Lids-WNL Ears- Canals- Clear, TMs- WNL Nose-Straight, Nares Patent OroPharynx-Mouth WNL, Tongue- no lesions, throat no erythema or exudate Neck- Supple, no lymphadenopathy, thyroid WNL CARDIOVASCULAR Heart- Regular rate and Rhythm without murmur, click of valve noted Extremities- No edema RESPIRATORY Normal chest movement, clear to auscultation ABDOMINAL/GI Nondistended, soft, nontender, normal bowel sounds, no masses, no hepatosplenomegaly GENITOURINARY No CVA tenderness BACK Straight, normal ROM, nontender MUSCULOSKELETAL No joint pain, swelling or deformity VASCULAR No JVD, Dorasalis pedis and Posterior Tibialis pulses normal and symmetrical DERMATOLOGY No rashes, no significant skin lesions, skin turgor WNL NEUROLOGICAL Cranial Nerves 11-x11 grossly intact, gait WNL, Coordination WNL, Muscle strength normal and Symmetrical, DTR normal and symmetrical, Light touch sensation intact PSYCHIATRIC Mood and affect WNL, Oriented to person, place and time Tobacco/Smoking Status: Tobacco use Status Tobacco use date assessed 02/18/25 02/18/25 10:51 Patient Tobacco Use Status Former Tobacco user 02/18/25 10:51 e-Cigarette/Vaping Use Former Use 02/18/25 14:23 PHQ-9: PHQ-9 Score PHQ-9: Total score 4 02/23/25 07:02 Depression Screening Interpretation: Negative Thrive Assessment: Date of Thrive Assessment Date Thrive assessed 02/18/25 02/18/25 10:51 Coding Level of Care Code Established Pt Est Pt Level 4 (84058) Patient Type Established Diagnoses Preop examination Z01.818 Cataract H26.9 Cataract type: age-related Laterality: right Essential hypertension I10 Status post mechanical aortic valve replacement Z95.2 PAF (paroxysmal atrial fibrillation) I48.0 Time Spent (min) 35 Comment Time spent on chart review, medication reconciliation, H&P, patient education. Assessment & Plan Assessment & Plan (1) Preop examination: Comment: OK for low cardiac risk procedure under local anesthetic Code(s): Z01.818 - Encounter for other preprocedural examination Category: Medical Plan: The patient is scheduled for cataract surgery on March 05, to be performed by Dr. Fide Resendiz. Current guidelines indicate that warfarin can be continued during the procedure due to its low-risk nature. (2) Cataract: Code(s): H26.9 - Unspecified cataract Category: Medical Qualifiers: Cataract type: age-related Laterality: right Plan: Patient scheduled for surgery on right cataract on 03/[address] Jones (3) Essential hypertension: Comment: BP today was 122/80 Code(s): I10 - Essential (primary) hypertension Category: Medical Plan: Controlled. Continue Metoprolol. Follow up with Cardiology in 6 months and PCP in April (4) Status post mechanical aortic valve replacement: Comment: S/p [place] valve replacement with INR Goal of 1.5 to 2 (Followed by [facility]) & Cardiology Code(s): Z95.2 - Presence of prosthetic heart valve Category: Surgical Plan: Patient is followed by Cardiology (5) PAF (paroxysmal atrial fibrillation): Code(s): I48.0 - Paroxysmal atrial fibrillation Category: Medical Plan: Patient is followed by Cardiology Plan I discussed with the patient that current guidelines allow for the continuation of warfarin during cataract surgery due to its low-risk nature. We also reviewed her recent lab work to ensure readiness for the upcoming procedure. Patient Instructions: - Continue taking warfarin as prescribed.
[2025-02-18 14:16] VITALS: BP 122/80; PULSE 59; TEMP 36.3; O2SAT 98; BMI 29.6
--- OUTSIDE RECORDS SUMMARY | 2025-02-18 17:42 | XMS_ITS | Patient Health Record ---
Author Organization [facility] Address [address] [place] [address] Care Team Providers Care Press Offbearer Name Role Phone [place] (RETIRED) Herbert LE Primary Care Provider Unavailable Ranulfo Blair Jr Unavailable [phone] Allergies Allergen (clinical drug ingredient) Drug/Non Drug [...] Problem Status W/U Status Risk Notes Problem Colon cancer screening (799772839) Colon cancer screening (Z12.11) Active confirmed Problem Irritable bowel syndrome (61281342) Irritable bowel syndrome with both constipation and diarrhea (K58.2) Active confirmed Plan Of Treatment Future Test Test Name Order Date COLONOSCOPY 10/24/2018 Insurance Providers Payer Name Payer Address Payer Phone Subscriber Number Group Number Insured Name Patient Relationship to Insured Coverage Start Date Coverage End Date [facility] [address] [place], [place] [id number] [phone] [id number] VASHTI TORRES Self - patient is the insured Medical (General) History Medical History History ICD Code Denies [place],DM,CVA,Lung disease,renal dise ase Surgical History Surgery Date(Month/Year) dilatation and curettage 1992
--- OUTSIDE RECORDS SUMMARY | 2025-02-18 17:43 | XMS_ITS | Patient Health Record ---
Author Organization [facility] Address [address] [place] [address] Care Team Providers Care Newspaper Columnist Name Role Phone Herbert Boyle MD Primary Care Provider Unavailab Bena Mendoza Unavailable [phone] Reason For Referral No Information Medications Medication SIG (Take, Route, Frequency, Duration) Notes Start Date End Date Status Zoloft 100 MG 1 tablet Orally Once a day; Duration: 30 day(s) Active Problems Problem Type SNOMED Code ICD Code Onset Dates Problem Status W/U Status Risk Notes Problem Disorder of joint of ankle and/or foot (552437156) Arthritis - Degenerative (719.97) Active confirmed Problem Neuralgia - Neuritis (729.2) Active confirmed Problem Acquired deformity of joint of big toe (disorder) (378064244) Hallux Limitus (735.8) Active confirmed Problem Congenital pes planus (50894021) Flat Foot, Congenital (754.61) Active confirmed Problem Pain in limb (52604866) Pain in Limb (729.5) Active confirmed Plan Of Treatment Pending Test Test Name Order Date 72130, J0702- Neuroma/Injection 09/27/19 12 Insurance Providers Payer Name Payer Address Payer Phone Subscriber Number Group Number Insured Name Patient Relationship to Insured Coverage Start Date Coverage End Date [employer] [address] [place] [phone] [id number] Rehan Spaulding Spouse - patient is the spouse of the insured Medical (General) History Medical History History ICD Code cataracts menieres disease Surgical History Surgery Date(Month/Year) D&C
--- OUTSIDE RECORDS SUMMARY | 2025-02-18 17:43 | XMS_ITS | Continuity of Care Document ---
Author Organization [facility] Address [address] [place] [address] Phone [phone] Social History Type Date Description Comments Sex Female Sex Unknown Medications Active Medications SIG Qnty Indications Ordering Provider Date Bupropion Hydrochloride ER (SR)150mg Tablets ER 12HR Herbert Boyle M.D. Jantoven2.5mg Tablets Juana Boyle M.D. Sertraline RIH86ak Tablets Herbert Ramos M.D. Metoprolol [id number] Tablets Unknown [id number] Capsules Herbert Boyle M.D. Results Test Acquired Date Facility Test Result H/L Range N ote Albumin 01/30/2022 [facility] Albumin 4.7 GM/DL (3.4-4.8) Basic Metabolic Panel 01/30/2022 [facility] Glucose 97 mg/dL (70-99) 1 BUN 17 mg/dL (6-20) Creatinine 0.6 mg/dL (0.5-1.0) Sodium 142 mmol/L (133-145) Potassium 4.9 mmol/L (3.6-5.2) Chloride 105 mmol/L (98-107) Bicarbonate 27 mmol/L (22-29) Anion Gap 10 (4-17) Calcium 11.3 mg/dL High (8.6-10.5 ) Estimated GFR Creatinine 105 ML/MIN/1.7 3M2 2 Phosphorus 01/30/2022 [facility] Phosphorus 3.4 mg/dL (2.5-4.5) 25Oh Vitamin D 01/30/2022 [facility] 25Oh Vitamin D 27.5 NG/ML (20-50) PTH, Intact 01/30/2022 [facility] PTH, Intact 65 pg/mL [...]
--- OUTSIDE RECORDS SUMMARY | 2025-02-18 17:43 | XMS_ITS | Clinical Summary ---
Author Organization [facility] Address [address] [place] [address] Phone Care Team Providers Care Trimmer Machine Operator Name Role Phone Herbert Boyle MD Primary Care Provider [phone] Allergies No known active allergies Medications warfarin [...] SEE NARRATIVE - 03/23/2021 4:09 PM EST [address] [address] It Service Delivery Manager: Rosalina Palmer MD MACHINE FEEDER FLOORPERSON Cytology Report FINAL DIAGNOSIS A. PAP SMEAR [...] 52, 56, 58, 59, 66, 68) by [employer] Onclarity HR-HPV analysis. Clinical correlation is advised. This HPV test was performed at [facility], [address] [place] [address]. This test has been FDA approved for SurePath cervical cytology specimens. The accuracy and precision of this test for all other specimen sources has been verified in the Cytopathology Laboratory of the [facility] and has not been cleared or approved by the U.S. Food and Drug Administration. Clinical correlation is advised. CLINICAL HISTORY Date of Last Menstrual Period: Not Provided Menstrual History: Post Menopausal Other Clinical Conditions: Screening Pap SPECIMEN SOURCE A: PAP SMEAR (SUREPATH) CE Patient Name: RERE SPAULDING : 1965 (Age: 55) Sex: F Institution: [facility] Location: [facility] Date of Collection: 03/18/2021 Date of Reported: 03/23/2021 16:09 Results to: Keely Keller MD Keely Keller MD CYTOLOGY ORDERABLES Final Result SEE NARRATIVE from Last 3 Months or Most Recently Relevant to Health Maintenance Insurance [employer] PPO [employer] PPO [facility] [employer] PASSPORT PPO [facility] [employer] PASSPORT PPO ON[employer]ED [employer] PASSPORT PPO [employer] PPO ON[employer]ED [employer] PASSP[employer] PPO [facility] [employer] PASSPORT PPO [facility] [employer] PASSPORT PPO Care Teams Trimmer Machine Operator Relationship Specialty Start Date End Date Herbert Boyle MD [address] [place] [address] [place] [address] PCP - General Internal Medicine 02/18/21 Additional Source Comments The information contained in this document represents components of the legal health record. It is not the complete legal health record.[facility]
== END 2025-02-18 14:57 | disposition home or self-care (01) ==
LOC: HO.HMCHD 13:57
PROVIDERS: PCP Student in an Organized Health Care Education/Training Program; Visit Provider Physician Assistant Medical
DX: Z01.818 Encounter for other preprocedural examination (principal); H26.9 Unspecified cataract; I10 Essential (primary) hypertension; Z95.2 Presence of prosthetic heart valve; I48.0 Paroxysmal atrial fibrillation